=== PATIENT | male | born 1935 | race Caucasian/White ===

== ENCOUNTER 2017-07-06 21:23 | Emergency (ER) | payer MEDICARE, BC ==
--- NOTE | 2017-07-06 22:18 | RAD ---
RIGHT FOOT THREE VIEWS: 07/06/17 HISTORY: Fall. Right foot pain. FINDINGS/IMPRESSION: No acute fracture or dislocation is seen. Degenerative changes are present. Posterior and plantar kasi caneal spurs are present. POS: MANOLO
== END 2017-07-06 23:50 | disposition home or self-care (01) ==
LOC: ERS 21:23
DX: S90.111A Contusion of right great toe without damage to nail, initial encounter (principal); S90.821A Blister (nonthermal), right foot, initial encounter; I48.91 Unspecified atrial fibrillation; E11.9 Type 2 diabetes mellitus without complications; I48.92 Unspecified atrial flutter; E03.9 Hypothyroidism, unspecified; I10 Essential (primary) hypertension; Z87.891 Personal history of nicotine dependence; Z79.01 Long term (current) use of anticoagulants; W01.0XXA Fall on same level from slipping, tripping and stumbling without subsequent striking against object, initial encounter; Y93.01 Activity, walking, marching and hiking

== ENCOUNTER 2018-09-01 09:52 | Outpatient (CLI) | payer MEDICARE, BC ==
--- NOTE | 2018-09-01 11:08 | RAD ---
LEFT FOOT 3 VIEWS: HISTORY: Pain in foot and ankle with swelling. FINDINGS: There are prominent calcaneal spurs present. Some arthritic changes of the tarsal bone region and 1s t metatarsophalangeal joint and interphalangeal joints. There is minimal vascular calcification seen . There are no signs of any acute bony findings. IMPRESSION: Arthritic changes of the foot and some mild bony demineralization. POS: TPC
--- NOTE | 2018-09-01 11:10 | RAD ---
LEFT ANKLE 3 VIEWS: HISTORY: Pain and edema in the left ankle and foot without injury. FINDINGS: There is some soft tissue fullness of the lower leg, ankle, and foot. Arthrosis and degenerative timo nges are noted including the ankle joint with calcaneal plantar and Achilles enthesophytes. IMPRESSION: Degenerative and osteoarthrosis changes without acute fracture or dislocation. Small focus of decrea sed bone density in the medial talar dome, possibly a medial talar dome osteochondral subchondral cys tic focus. POS: C
== END 2018-09-01 09:53 | disposition home or self-care (01) ==
LOC: BICRAD 09:52
PROVIDERS: ATTEND Podiatrist
DX: M25.572 Pain in left ankle and joints of left foot (principal); M79.672 Pain in left foot; R60.0 Localized edema; M19.072 Primary osteoarthritis, left ankle and foot

== ENCOUNTER 2019-01-26 01:46 | Observation (INO) | payer MEDICARE, BC ==
[2019-01-26] MEDS ORDERED: Oxymetazoline HCl 0.05% (30 ML BOT) ONE (01:56)
[2019-01-26] MEDS ORDERED: Tranexamic Acid 1,000 MG/10 ML VIAL ONE (01:56)
[2019-01-26 02:25] LABS: #Basophils 0.1 thou/uL (0.0-0.2); #Eosinphils 0.2 thou/uL (0.0-0.7); #Lymphocytes 1.7 thou/uL (1.20-3.40); #Monocytes 0.8 thou/uL (0.11-0.59); #Neutrophils 5.1 thou/uL (1.40-6.50); %Basophils 0.8 % (0.0-1.0); %Eosinophils 3.1 % (0.0-10.0); %Lymphocytes 21.3 % (21.0-51.0); %Monocytes 10.1 % (0.0-10.0); %Neutrophils 64.7 % (42.0-75.0); Hemoglobin 12.4 g/dL (14.0-18.0); Mean Corpuscular HGB CONC 33.6 g/dL (32.0-36.0); Mean Corpuscular Hemoglobin 31.8 pg (27.0-31.0); Mean Corpuscular Volume 94.7 fL (78.0-98.0); Mean Platelet Volume 6.2 fL (7.4-10.4); Platelet Count 237 thou/uL (130-400); RBC Distribution Width 12.7 % (11.5-14.5); White Blood Cell (WBC) Count 7.9 thou/uL (4.8-10.8)
[2019-01-26 02:31] LABS: INR-International Normal Ratio 1.5; Prothrombin Time 18.2 SEC (12.0-14.7)
[2019-01-26 02:32] LABS: PTT 52.1 SEC (22.9-36.1)
[2019-01-26 02:45] LABS: ALT (SGPT) 16 U/L (8-55); AST (SGOT) 20 U/L (5-34); Albumin 4.3 g/dL (3.4-4.8); Alkaline Phosphatase 70 U/L (40-110); Anion Gap 13 mmol/L (10-20); BUN (Urea Nitrogen) 12 mg/dL (8.4-25.7); Bilirubin, Total 0.6 mg/dL (0.2-1.2); Calc. Creatinine Clearance 0 mL/min (70-130); Calcium 9.7 mg/dL (7.8-10.44); Carbon Dioxide 26 mmol/L (23-31); Chloride 93 mmol/L (98-107); Estimated GFR-MDRD 72; Glucose 118 mg/dL (83-110); Potassium 4.4 mmol/L (3.5-5.1); Protein, Total 7.3 g/dL (5.8-8.1); Sodium 128 mmol/L (136-145)
[2019-01-26] MEDS ORDERED: Nitroglycerin 2% Ointment 1 INCH/1 GM Packet ONE (03:21)
--- NOTE | 2019-01-26 03:49 | PDOC.HHP ---
Hospitalist HPI - History of Present Illness Epistaxis History of Present Illness: Patient is an 83 year old male with PMH atrial fibrillation on eliquis, chronic hyponatremia who presents to the ED for epistaxis. Tonight, patient developed significant nose bleed while brushing teeth, lasted for 40 minutes despite pressure and had a post-nasal drip. Patient has had several episodes of epistaxis in past, sees Dr Solis (ENT) for this, who has performed laryngoscopy in the past, presented for this in the past about 2 weeks ago, saw Dr Miguel Damico at that time who cauterized nares, given nasal saline. PMH significant for CHANTELL, DM, hyponatremia, Afib, hypothyroidism, HTN. In ED, bleeding controlled with afrin and txa, patient to be admitted for observation and ENT consultation. 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 Hospitalist ROS - Review of Systems Constitutional: denies: fever, chills Eyes: denies: vision change, conjunctivae inflammation ENT: reports: other (epistaxis). denies: ear pain, throat pain Respiratory: denies: cough, shortness of breath Cardiovascular: denies: chest pain, palpitations Gastrointestinal: denies: nausea, vomiting, diarrhea Genitourinary: denies: dysuria, frequency Musculoskeletal: denies: neck pain, shoulder pain Skin: denies: rash, lesions Neurological: denies: weakness, numbness All other systems reviewed; all pertinent +/- noted in HPI/Subj - Medication Medications: reviewed, see MAR/med rec for details Hospitalist History - Past Medical History Other Medical History: Past medical history includes cardiac history, arrhythmia, Atrial flutter (September 2011), Past medical history includes history of diabetes, Type II, Past medical history includes endocrine disease, hypothyroidism, Past medical history includes history of hypertension, which has been treated, Patient is compliant. - Past Surgical History Other Surgical History: Rt endartectomy (02/07/2015), Left endartectomy (05/2007) Colonoscopy Aflutter Ablation Cataract RT eye Cervical laminectomy C2, C3 Nasal sinus surgery Left knee scope Angioplasty x2, Surgical history of coronary artery bypass graft surgery, three vessels, Surgical history of cholecystectomy. - Family History Family History: reports: no pertinent history - Social History Other Social History: Patient is a former tobacco user, smoked cigarettes, Patient quit smoking more than 10 years ago, Patient denies alcohol use, Patient denies drug use,. - Exam General Appearance: NAD, awake alert Eye: PERRL, anicteric sclera ENT: normocephalic atraumatic, no oropharyngeal lesions, moist mucosa Neck: supple, symmetric, no JVD, no thyromegaly, no lymphadenopathy, no carotid bruit Heart: RRR, no murmur, no gallops, no rubs, normal peripheral pulses Respiratory: CTAB, no wheezes, no rales, no ronchi, normal chest expansion, no tachypnea, normal percussion Gastrointestinal: soft, non-tender, non-distended, normal bowel sounds, no palpable masses, no hepatomegaly, no splenomegaly, no bruit Extremities: no cyanosis, no clubbing, no edema Skin: normal turgor, no lesions, no rashes Neurological: cranial nerve grossly intact, normal sensation to touch, no weakness, no focal deficits, no new deficit Musculoskeletal: normal tone, normal strength, no muscle wasting Psychiatric: normal affect, normal behavior, A&O x 3 Hospitalist Results - Labs Result Diagrams: 01/26/19 02:18 01/26/19 02:18 Lab results: WBC 7.9 thou/uL (4.8-10.8) 01/26/19 02:18 Hgb 12.4 g/dL (14.0-18.0) L 01/26/19 02:18 Hct 37.0 % (42.0-52.0) L 01/26/19 02:18 MCV 94.7 fL (78.0-98.0) 01/26/19 02:18 Plt Count 237 thou/uL (130-400) 01/26/19 02:18 Neutrophils % 64.7 % (42.0-75.0) 01/26/19 02:18 Sodium 128 mmol/L (136-145) L 01/26/19 02:18 Potassium 4.4 mmol/L (3.5-5.1) 01/26/19 02:18 Chloride 93 mmol/L (98-107) L 01/26/19 02:18 Carbon Dioxide 26 mmol/L (23-31) 01/26/19 02:18 BUN 12 mg/dL (8.4-25.7) 01/26/19 02:18 Creatinine 0.99 mg/dL (0.7-1.3) 01/26/19 02:18 Glucose 118 mg/dL (83-110) H 01/26/19 02:18 Calcium 9.7 mg/dL (7.8-10.44) 01/26/19 02:18 Total Bilirubin 0.6 mg/dL (0.2-1.2) 01/26/19 02:18 AST 20 U/L (5-34) 01/26/19 02:18 ALT 16 U/L (8-55) 01/26/19 02:18 Alkaline Phosphatase 70 U/L (40-110) 01/26/19 02:18 Serum Total Protein 7.3 g/dL (5.8-8.1) 01/26/19 02:18 Albumin 4.3 g/dL (3.4-4.8) 01/26/19 02:18 Additional comment: BP: 157/107, Pulse: 114, Resp: 18 (Non-Labored), Pain: 0, O2 sat: 96 on Room Air , Time: 01/26/2019 01:47. Hospitalist H&P A/P - Problem (1) Epistaxis Code(s): R04.0 - EPISTAXIS Status: Acute Assessment and Plan: admit to floor, ent consultation placed, bleeding currently controlled, continue eliquis, follow up repeat hemoglobin. no symptoms of acute anemia clinically (2) Hyponatremia Code(s): E87.1 - HYPO-OSMOLALITY AND HYPONATREMIA Status: Acute Assessment and Plan: consulation placed for Dr Wilson, resume home meds once med rec complete.
[2019-01-26] MEDS ORDERED: Ondansetron PF 4 MG/2 ML Vial IVP PRN (03:59)
[2019-01-26] MEDS ORDERED: Bisacodyl 10 MG SUPP PR PRN (03:59)
[2019-01-26] MEDS ORDERED: HYDROcodone/Acetaminophen 5/325 mg Tablet PO PRN (03:59)
[2019-01-26] MEDS ORDERED: Acetaminophen 325 MG TAB PO PRN (03:59)
[2019-01-26] MEDS ORDERED: Bisacodyl 5 MG TAB PO PRN (03:59)
[2019-01-26] MEDS ORDERED: Senokot S 8.6-50 MG TAB PO PRN (03:59)
[2019-01-26 05:34] VITALS: BMI 30.9
[2019-01-26] MEDS: Famotidine 20 MG TAB PO SCH ×2 (08:11→19:56)
[2019-01-26] MEDS ORDERED: Oxymetazoline HCl 0.05% ( 15 ML ) NASAL SCH (13:15)
[2019-01-26 14:22] LABS: Anion Gap 12 mmol/L (10-20); BUN (Urea Nitrogen) 12 mg/dL (8.4-25.7); Calc. Creatinine Clearance 96 mL/min (70-130); Calcium 9.7 mg/dL (7.8-10.44); Carbon Dioxide 29 mmol/L (23-31); Chloride 91 mmol/L (98-107); Estimated GFR-MDRD 90; Glucose 155 mg/dL (83-110); Magnesium 1.8 mg/dL (1.6-2.6); Potassium 4.3 mmol/L (3.5-5.1); Sodium 128 mmol/L (136-145); Uric Acid 3.5 mg/dL (3.5-7.2)
[2019-01-26] MEDS ORDERED: Oxymetazoline HCl 0.05% (30 ML BOT) NS SCH ×2 (15:00→21:00)
[2019-01-26] MEDS ORDERED: diphenhydrAMINE 25 MG CAP PO PRN (15:40)
[2019-01-26] MEDS ORDERED: Carvedilol 6.25 MG TAB PO SCH ×2 (15:45→21:00)
[2019-01-26] MEDS ORDERED: Amlodipine 5 MG TAB PO SCH (15:45)
[2019-01-26] MEDS ORDERED: Polyethylene Glycol 3350 17 GM Packet PO PRN (15:48)
[2019-01-26] MEDS ORDERED: Labetalol HCl 100 MG/20 ML VIAL SLOW IVP PRN (16:49)
[2019-01-26] MEDS ORDERED: Losartan 25 MG TAB PO SCH (17:00)
--- NOTE | 2019-01-26 19:23 | PRG ---
DATE OF SERVICE: 01/26/2019 SUBJECTIVE: Mr. Welch is admitted with a severe nose bleed. He is on full dose Eliquis. He has had several recent nosebleeds, severe. He is also noted to be hypertensive. His blood pressure was 179/84 this afternoon. He has also low sodium, which is a chronic problem. OBJECTIVE: VITAL SIGNS: On examination now, blood pressure 179/84, pulse is 84. LUNGS: Clear. CARDIAC: Irregularly irregular. ABDOMEN: Soft, nontender. ASSESSMENT: 1. Chronic atrial fibrillation. 2. Congestive heart failure, systolic and diastolic mixed, ejection fraction 45% to 50%. 3. Hypertension, difficult to control. 4. Recurrent nosebleeds. PLAN: 1. We will stop Eliquis until , then go to 2.5 mg twice a day. 2. We are going to see the director instructional material consideration for trying to get a Watchman placed in view of recurrent nosebleed. 3. As an outpatient, could consider changing him from Benicar to Entresto, may be more effective at controlling his blood pressure and fluid without dropping his sodium. 4. We will restrict fluid to 1500 mL per day. Job ID: [id number]
[2019-01-26 19:58] VITALS: BP 168/84; TEMP 97.2
--- NOTE | 2019-01-26 20:23 | PRG ---
DATE OF SERVICE: 01/26/2019 SUBJECTIVE: Mr. Welch was admitted to [facility] with a diagnosis of hyponatremia and epistaxis. He was admitted through the ER to the hospitalist service. ENT was asked to come in and evaluate the nosebleed. Nose was actively bleeding when we entered the emergency room; however, once he was stabilized, it has not bled since he has been up on the floor. Mr. Welch admitted two weeks ago, his nose was cauterized for bleeding, but had not bled up until recently. Overall, the patient is doing well and has had no active bleeding again since being up on the floor. OBJECTIVE: GENERAL: The patient is well developed, well nourished. He is in no acute distress. VITAL SIGNS: His vital signs are stable. Currently, there is no sign of active bleeding. HEENT: Upon inspection of the level of the nose, there is evidence of old blood in the left anterior septum, but nothing is actively bleeding at this time. There is no sign of blood posterior drainage. ASSESSMENT: 1. Hyponatremia. 2. Epistaxis. PLAN: The patient is stable at this time. Therefore, no treatment currently needed for treatment of the epistaxis. If bleeding begins, may use Afrin at bedside with direct pressure. Recommend ENT followup upon discharge. Job ID: [id number]
[2019-01-26] MEDS ORDERED: Tamsulosin HCl 0.4 MG CAP PO SCH (21:00)
[2019-01-27] MEDS ORDERED: Levothyroxine Sodium 125 MCG TAB PO SCH (06:00)
[2019-01-27] MEDS ORDERED: Losartan 25 MG TAB PO SCH ×2 (09:00)
[2019-01-27] MEDS ORDERED: Multivit, Therapeutic 1 TAB PO SCH (09:00)
[2019-01-27] MEDS ORDERED: Non-Formulary Item 1 EACH (Olmesartan Medoxomil [Benicar] 40 MG) PO SCH (09:00)
[2019-01-27] MEDS ORDERED: Gabapentin 300 MG CAP PO SCH (09:00)
[2019-01-27] MEDS ORDERED: Amlodipine 5 MG TAB PO SCH (09:00)
--- NOTE | 2019-01-27 09:23 | DIS ---
DATE OF ADMISSION: 01/26/2019 DATE OF DISCHARGE: 01/26/2019 DISCHARGE DISPOSITION: Home. FOLLOWUP: 1. Follow up with primary care physician, Dr. Aleman in 1 week. 2. Follow up with primary ENT at [facility] as needed. ALLERGIES: PENICILLIN. CODE STATUS: Full code. DISCHARGE MEDICATIONS: Eliquis 2.5 mg twice daily to be started on January 30. All other home medications were left unchanged. The patient was seen and examined on the day of discharge. Denies any new complaints. 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 ENT Service. 2. Cardiology, Dr. Wilson. BRIEF HOSPITAL COURSE: The patient is an 83-year-old male with atrial fibrillation, on anticoagulation, presented to the hospital with epistaxis. Please refer to the history and physical by Dr. Sami Valles for further details. The patient was admitted to the hospital with a diagnosis of epistaxis. He was monitored on the telemetry unit as 23-hour observation. He had intermittent epistaxis while on the floor. The bleeding was controlled with nasal packing as well as Afrin sprays. He was evaluated by ENT as well as Cardiology. He will hold anticoagulation for 3 more days. He will resume anticoagulation at a lower dose. He was advised to follow up with ENT Service as outpatient. FINAL DIAGNOSES: 1. Epistaxis, resolved. 2. Hyponatremia. His sodium was 128 this admission. He will benefit from repeat labs after 1 week. Fluid restriction was emphasized. He declined. Nephrology consultation. 3. Chronic anemia. 4. Chronic atrial fibrillation. 5. Chronic systolic and diastolic heart failure. Recent ejection fraction of 45% to 50%. 6. Hypertension. 7. History of recurrent epistaxis. 8. Obesity with a BMI of 31. 9. Chronic kidney disease, stage 2. PLAN: Plan of care was discussed with the patient and the family in detail. They stated understanding. Significant labs; urine osmolality 273, urine sodium 88, serum osmolality 277. Magnesium was 1.8. TSH 0.6. Job ID: [id number]
--- NOTE | 2019-01-31 11:06 | EKG ---
Test Reason : Blood Pressure : / mmHG Vent. Rate : 096 BPM Atrial Rate : 068 BPM P-R Int : 000 ms QRS Dur : 112 ms QT Int : 364 ms P-R-T Axes : 000 -38 098 degrees QTc Int : 459 ms Atrial fibrillation with Premature ventricular complexes Left axis deviation Nonspecific ST and T wave abnormality Abnormal ECG Confirmed by GABRIELLA HOANG, BEATRIZ Isabel ([id number]), legal editor BERNY JESUS ([id number]) on 01/31/2019 11:05:51 AM Referred By: Confirmed By:BEATRIZ QUIROZ MD
== END 2019-01-26 20:36 | disposition home or self-care (01) ==
LOC: ERS 01:46 → 2SW 05:21
PROVIDERS: ADMIT Internal Medicine; ATTEND Internal Medicine
DX: R04.0 Epistaxis (principal); E87.1 Hypo-osmolality and hyponatremia; I48.2 Chronic atrial fibrillation; I13.0 Hypertensive heart and chronic kidney disease with heart failure and stage 1 through stage 4 chronic kidney disease, or unspecified chronic kidney disease; E11.22 Type 2 diabetes mellitus with diabetic chronic kidney disease; N18.2 Chronic kidney disease, stage 2 (mild); I50.42 Chronic combined systolic (congestive) and diastolic (congestive) heart failure; D63.1 Anemia in chronic kidney disease; G47.33 Obstructive sleep apnea (adult) (pediatric); E03.9 Hypothyroidism, unspecified; E66.9 Obesity, unspecified; Z68.31 Body mass index [BMI] 31.0-31.9, adult; Z87.891 Personal history of nicotine dependence; Z79.01 Long term (current) use of anticoagulants; Z79.82 Long term (current) use of aspirin; Z79.84 Long term (current) use of oral hypoglycemic drugs; Z79.899 Other long term (current) drug therapy; Z88.0 Allergy status to penicillin
CPT/HCPCS: 80048; 83735; 83930; 83935; 84300; 84550; 85610; 85730; 86850; 86900; 86901; 93005; 93306; 99284; G0378 ×2; 36415; 80053; 84443; 85025

== ENCOUNTER 2019-05-06 06:03 | Day surgery (SDC) | payer MEDICARE, BC ==
[2019-05-05 14:19] VITALS: BMI 35.9
[2019-05-06] MEDS ORDERED: Heparin (Artline) 0 ML ONE (06:37)
[2019-05-06] MEDS ORDERED: Heparin 10,000 UNITS/1 ML VIAL ONE (06:37)
[2019-05-06 06:51] LABS: #Eosinphils 0.2 thou/uL (0.0-0.7); #Lymphocytes 1.5 thou/uL (1.20-3.40); #Monocytes 0.6 thou/uL (0.11-0.59); %Basophils 0.2 % (0.0-1.0); %Eosinophils 2.6 % (0.0-10.0); %Monocytes 9.3 % (0.0-10.0); %Neutrophils 63.8 % (42.0-75.0); Hemoglobin 12.1 g/dL (14.0-18.0); Mean Corpuscular HGB CONC 34.5 g/dL (32.0-36.0); Mean Corpuscular Volume 95.5 fL (78.0-98.0); Mean Platelet Volume 6.6 fL (7.4-10.4); Platelet Count 212 thou/uL (130-400); RBC Distribution Width 13.1 % (11.5-14.5); Red Blood Cell (RBC) Count 3.66 mill/uL (4.70-6.10); White Blood Cell (WBC) Count 6.3 thou/uL (4.8-10.8)
[2019-05-06 06:59] LABS: INR-International Normal Ratio 1.3; Prothrombin Time 16.6 SEC (12.0-14.7)
[2019-05-06] MEDS ORDERED: PROPOFOL 20 ML ONE (07:03)
[2019-05-06 07:13] LABS: Anion Gap 12 mmol/L (10-20); BUN (Urea Nitrogen) 11 mg/dL (8.4-25.7); Calc. Creatinine Clearance 110 mL/min (70-130); Calcium 9.6 mg/dL (7.8-10.44); Carbon Dioxide 29 mmol/L (23-31); Chloride 94 mmol/L (98-107); Estimated GFR-MDRD Greater than 90; Glucose 114 mg/dL (83-110); Sodium 131 mmol/L (136-145)
--- NOTE | 2019-05-06 17:22 | ECHO ---
DATE OF SERVICE: 05/06/19 REFERRING PHYSICIAN: Dr. Rohit Wilson; Dr. Zander Bernal REASON FOR PROCEDURE: The patient is an 84-year-old man with history of chronic persistent atrial fibrillation with multipl e falls and underwent a Watchman device placed in March 24, 2019. He is here for a six week postop Watchman device ROGER. PROCEDURE: The patient received propofol by Anesthesia specialist. After adequate level of sedation achieved, a standard transesophageal echocardiogram probe was passed into the esophagus without diff iculty. Patient tolerated the procedure well, no complications noted. RESULTS: Left atrium is moderately enlarged about 5.3 cm in horizontal diameter. The left atrial appendage is well visualized with adequately seated Watchman device noted. Suboptimal opacification behind the Wa tchman device is seen and with Doppler interrogation, there is a small leak noted by the annular surf kiko of the Watchman device communicating behind the Watchman device into the left atrial appendage sp kiko. Also tiny flow through the front of the device is seen through the mesh work. Four out of four p ulmonary veins were seen without stenosis. Mild mitral regurgitation is noted. LV systolic function m oderately reduced. Estimated at about 45 to 50%. The right sided chambers are not dilated. Interatri al and interventricular septum is free of defect. The transseptal function is not visualized. Tricusp id valve has mild regurgitation only. The aortic valve has three leaflets with some sclerosis and isaiah flet fusion with moderate aortic valve stenosis up to 1.3 cm in the aortic valve area by planimetry. The pulmonary valve is not regurgitant or stenotic. The visualized portion of ascending and descendin g aorta with mild atheroma. No dissection or dilation. CONCLUSION: 1. Good quality transesophageal echocardiogram study.. 2. Adequately seated Watchman device but with slight leak visualized by the annular surface of the d evice with somewhat suboptimal opacification. 3. Mild mitral regurgitation and tricuspid regurgitation noted. 4. Mild reduced LV systolic function at 45 to 50%. LV dilation is seen. 5. Moderate aortic stenosis with planimetry aortic valve area about 1.3 sq cm with peak transaortic valve ------- by hand probe at 2.6 m/s. 6. No pericardial effusion. 7. Mild aortic atheroma. PLAN: Continue anticoagulation for now. We will send CD for review to Robert. Consider three month recheck of ROGER.
--- NOTE | 2019-05-08 15:19 | EKG ---
Test Reason : PREOP ROGER Blood Pressure : / mmHG Vent. Rate : 067 BPM Atrial Rate : 110 BPM P-R Int : 000 ms QRS Dur : 102 ms QT Int : 414 ms P-R-T Axes : 000 -03 017 degrees QTc Int : 437 ms Atrial fibrillation Possible Anterior infarct , age undetermined Abnormal ECG When compared with ECG of 26-JAN-2019 02:11, Premature ventricular complexes are no longer Present Nonspecific T wave abnormality no longer evident in Lateral leads Confirmed by DR. Jocelyn HAMMER ([id number]) on 05/08/2019 3:18:46 PM Referred By: [facility] Confirmed By:DR. Jocelyn HAMMER
== END 2019-05-06 09:33 | disposition home or self-care (01) ==
LOC: CCL 06:03
PROVIDERS: ATTEND Internal Medicine Cardiovascular Disease
PROC: B24BZZ4 Ultrasonography of Heart with Aorta, Transesophageal (ICD-10-PCS; principal; 2019-05-06)
DX: I48.19 Other persistent atrial fibrillation (principal); I08.1 Rheumatic disorders of both mitral and tricuspid valves; I35.0 Nonrheumatic aortic (valve) stenosis; G89.29 Other chronic pain; M54.9 Dorsalgia, unspecified; N40.0 Benign prostatic hyperplasia without lower urinary tract symptoms; E03.9 Hypothyroidism, unspecified; E11.9 Type 2 diabetes mellitus without complications; I10 Essential (primary) hypertension; I25.10 Atherosclerotic heart disease of native coronary artery without angina pectoris; Z87.891 Personal history of nicotine dependence; Z79.01 Long term (current) use of anticoagulants; Z79.82 Long term (current) use of aspirin; Z79.84 Long term (current) use of oral hypoglycemic drugs; Z79.899 Other long term (current) drug therapy; Z88.0 Allergy status to penicillin; Z88.1 Allergy status to other antibiotic agents; Z95.1 Presence of aortocoronary bypass graft
CPT/HCPCS: 36415; 80048; 85025; 85610; 85730; 93005; 93010; 93312; J1644; J2704

== ENCOUNTER 2020-05-17 10:20 | Observation (INO) | payer MEDICARE, BC ==
--- NOTE | 2020-05-17 11:01 | RAD ---
Chest 2 views HISTORY: Chest pain. FINDINGS: Cardiac silhouette and pulmonary vasculature are unremarkable. Mediastinum is midline with postoperative changes and aortic calcification. Right hemidiaphragm elevation is similar to CT from 12/08/2019. No lobar consolidation, pneumothorax, or pleural fluid. Ossification of anterior longitudinal ligamen t of the thoracic spine on the lateral view is consistent with diffuse idiopathic skeletal hyperostosis. Prominent degenerative changes right shoulder. IMPRESSION : No acute abnormalities are demonstrated.
[2020-05-17] MEDS ORDERED: Nitroglycerin 2% Ointment 1 INCH/1 GM Packet ONE ×2 (11:12→18:04)
[2020-05-17] MEDS ORDERED: Aspirin Chewable 81 MG TAB ONE (11:12)
[2020-05-17 11:17] LABS: #Eosinphils 0.1 thou/uL (0.0-0.7); #Monocytes 0.4 thou/uL (0.11-0.59); #Neutrophils 3.2 thou/uL (1.40-6.50); %Basophils 0.3 % (0.0-1.0); %Eosinophils 2.3 % (0.0-10.0); %Lymphocytes 20.9 % (21.0-51.0); %Monocytes 9.2 % (0.0-10.0); %Neutrophils 67.4 % (42.0-75.0); Hemoglobin 12.3 g/dL (14.0-18.0); Mean Corpuscular HGB CONC 33.1 g/dL (32.0-36.0); Mean Corpuscular Hemoglobin 32.1 pg (27.0-31.0); Mean Platelet Volume 6.8 fL (7.4-10.4); Platelet Count 224 thou/uL (130-400); RBC Distribution Width 12.7 % (11.5-14.5); Red Blood Cell (RBC) Count 3.82 mill/uL (4.70-6.10); White Blood Cell (WBC) Count 4.7 thou/uL (4.8-10.8)
[2020-05-17 11:40] LABS: ALT (SGPT) 11 U/L (8-55); AST (SGOT) 16 U/L (5-34); Albumin 4.3 g/dL (3.4-4.8); Alkaline Phosphatase 72 U/L (40-110); Anion Gap 14 mmol/L (10-20); BUN (Urea Nitrogen) 13 mg/dL (8.4-25.7); Bilirubin, Total 0.8 mg/dL (0.2-1.2); Calc. Creatinine Clearance 0 mL/min (70-130); Calcium 9.4 mg/dL (7.8-10.44); Carbon Dioxide 31 mmol/L (23-31); Chloride 93 mmol/L (98-107); Globulin 2.7 g/dL (2.4-3.5); Glucose 126 mg/dL (83-110); Sodium 134 mmol/L (136-145)
--- NOTE | 2020-05-17 13:06 | CT ---
CT angiogram chest: 05/17/2020 COMPARISON: 12/08/2019 HISTORY: Chest pain, dyspnea worsened with deep breathing TECHNIQUE: Axial CT imaging at 2.5 mm intervals through the chest with IV contrast using CT angiogram protocol. Coronal and sagittal 3-D reformatted imaging obtained. FINDINGS: Midline sternotomy wires are noted. There is a small sliding-type hiatal hernia. Cholecystectomy clips are noted. There is atheroscleroti c calcification of the imaged abdominal aorta and its branches. There is a stable cyst emanating from the upper pole of the left kidney, incompletely imaged on this examination. No pleural, pericardial, or mediastinal fluid is seen. There is extensive coronary arterial calcification and stent material. There is a left atrial appenda ge occlusion device. Multifocal atherosclerotic calcification of the thoracic aorta noted. There is no axillary, hilar, or mediastinal lymphadenopathy evident. There is adequate opacification of the pulmonary arterial vasculature with no evidence for acute pulm onary arterial embolism. No pneumothorax is evident on either side. No discrete pulmonary parenchymal mass lesion/nodule is noted within the lung parenchyma on either si de. Evaluation of the lung bases is slightly limited secondary to motion artifact. No endobronchial lesion is evident on either side. There is severe degenerative change involving the right shoulder, incompletely imaged on this exam. N o worrisome lytic or blastic bone lesions. IMPRESSION: No evidence for acute pulmonary arterial embolism. Multiple additional findings as descri bed above.
--- NOTE | 2020-05-17 13:20 | PDOC.HHP ---
Hospitalist HPI - History of Present Illness Chest pain History of Present Illness: Mr. Welch is an 85-year-old male with a past medical history of hypertension, hyperlipidemia, atrial fibrillation status post watchman, type 2 diabetes mellitus, hypothyroidism, coronary artery disease status post CABG in 1998 who presents to the emergency room for chest pain. Patient reports that over the weekend when he was exercising on his treadmill he noticed squeezing chest pain that lasted approximately 15 to 20 minutes. He denies nausea indigestion. Pain does not radiate. Patient then does notice chest pain with increasing frequency even when he was just moving around his house. He denies any chest pain at rest however. His chest pain did improve with sublingual nitro. He does report that his pain is worse with inspiration And does feel different than his previous cardiac pain. He endorses mild shortness of breath during these episodes. He denies any abdominal pain, dizziness, visual changes, numbness weakness or paresthesias. In emergency room initial vital signs 144/72, 78, 18, 99.2, 96% on room air. EKG showed atrial fibrillation with controlled ventricular rate. Initial troponin 0 0.010. BNP 351.8. Chest x-ray with no acute findings. CTA PE protocol was negative for PE however did show a small sliding-type hiatal hernia and a left kidney cyst. H&H 12.3/37.0, WBC 4.7. BUN/CR 13/0.81. Sodium 134, potassium 4.0. Patient received 325 mg of aspirin in emergency room. Hospitalist ROS - Review of Systems Constitutional: denies: fever, chills, sweats, weakness, malaise, other Eyes: denies: pain, vision change, conjunctivae inflammation, eyelid inflammation, redness, other ENT: denies: ear pain, ear discharge, nose pain, nose discharge, nose congestion, mouth pain, mouth swelling, throat pain, throat swelling, other Respiratory: reports: SOB with excertion, pleuritic pain. denies: cough, dry, shortness of breath, hemoptysis, sputum, wheezing, other Cardiovascular: reports: chest pain. denies: palpitations, orthopnea, paroxysmal noc. dyspnea, edema, light headedness, other Gastrointestinal: denies: nausea, vomiting, abdominal pain, diarrhea, constipation, melena, hematochezia, other Genitourinary: denies: dysuria, frequency, incontinence, hematuria, retention, other Musculoskeletal: denies: neck pain, shoulder pain, arm pain, back pain, hand pain, leg pain, foot pain, other Skin: denies: rash, lesions, sony, bruising, other Neurological: denies: weakness, numbness, incoordination, change in speech, confusion, seizures, other - Medication Medications: New medications include Lipitor Levothyroxine Hydralazine Gabapentin Furosemide Aspirin Metformin Carvedilol Tamsulosin Entresto Catapres Allergies to penicillin and Cipro Hospitalist History - Past Medical History Other Medical History: Past medical history significant for Hypertension Hyperlipidemia A flutter status post watchman Type 2 diabetes mellitus Hypothyroidism Coronary artery disease status post CABG in 1998 Chronic hyponatremia - Past Surgical History Other Surgical History: CABG in 1998 Multiple cardiac caths Status post watchman procedure Cataract surgery Laminectomies Cholecystectomy Bilateral endarterectomies - Family History Other Family History: Reports family history of cardiac disease - Social History Smoking Status: Former smoker Alcohol: reports: None Drugs: reports: none (Quit over 10 years ago) Living Situation: With Family Activity level: independent ambulation - Exam General Appearance: NAD, awake alert Eye: PERRL, anicteric sclera ENT: normocephalic atraumatic, no oropharyngeal lesions, moist mucosa Neck: supple, symmetric, no JVD, no thyromegaly, no lymphadenopathy, no carotid bruit Heart: no gallops, no rubs, normal peripheral pulses Heart - other findings: Irregularly irregular, systolic murmur Respiratory: CTAB, no wheezes, no rales, no ronchi, normal chest expansion, no tachypnea, normal percussion Gastrointestinal: soft, non-tender, non-distended, normal bowel sounds, no palpable masses, no hepatomegaly, no splenomegaly, no bruit Extremities: no cyanosis, no clubbing Extremities - other findings: Trace pedal edema Skin: normal turgor, no lesions, no rashes Neurological: cranial nerve grossly intact, normal sensation to touch, no weakness, no focal deficits, no new deficit Musculoskeletal: normal tone, normal strength, no muscle wasting Psychiatric: normal affect, normal behavior, A&O x 3 Hospitalist Results - Labs Result Diagrams: 05/17/20 10:59 05/17/20 10:59 Lab results: WBC 4.7 thou/uL (4.8-10.8) L 05/17/20 10:59 Hgb 12.3 g/dL (14.0-18.0) L 05/17/20 10:59 Hct 37.0 % (42.0-52.0) L 05/17/20 10:59 MCV 97.0 fL (78.0-98.0) 05/17/20 10:59 Plt Count 224 thou/uL (130-400) 05/17/20 10:59 Neutrophils % 67.4 % (42.0-75.0) 05/17/20 10:59 Sodium 134 mmol/L (136-145) L 05/17/20 10:59 Potassium 4.0 mmol/L (3.5-5.1) 05/17/20 10:59 Chloride 93 mmol/L (98-107) L 05/17/20 10:59 Carbon Dioxide 31 mmol/L (23-31) 05/17/20 10:59 BUN 13 mg/dL (8.4-25.7) 05/17/20 10:59 Creatinine 0.81 mg/dL (0.7-1.3) 05/17/20 10:59 Glucose 126 mg/dL (83-110) H 05/17/20 10:59 Calcium 9.4 mg/dL (7.8-10.44) 05/17/20 10:59 Total Bilirubin 0.8 mg/dL (0.2-1.2) 05/17/20 10:59 AST 16 U/L (5-34) 05/17/20 10:59 ALT 11 U/L (8-55) 05/17/20 10:59 Alkaline Phosphatase 72 U/L (40-110) 05/17/20 10:59 Troponin I Less than 0.010 ng/mL (< 0.028) 05/17/20 10:59 B-Natriuretic Peptide 351.8 pg/mL (0-100) H 05/17/20 10:59 Serum Total Protein 7.0 g/dL (5.8-8.1) 05/17/20 10:59 Albumin 4.3 g/dL (3.4-4.8) 05/17/20 10:59 Hospitalist H&P A/P - Plan Plan: Chest pain 85-year-old male with significant cardiac history CABG in 1998 and multiple angioplasties presents with chest pain that is squeezing, worse with exertion relieved by rest. EKG shows atrial fibrillation with no ST changes. Initial troponin 0 0.010. BNP 351.8. Chest x-ray with no acute findings. CTA negative for PE, however did show small hiatal sliding-type hernia which could be contributing to patient's pain.. Patient reports his last stress test was a few years ago. He follows with Dr. Wilson. Will admit for chest pain rule out and if troponins remain low stress test in a.m. Plan Trend troponin Telemetry monitoring ASA, statin N.p.o. at midnight Stress test in a.m. if troponins remain low TSH, magnesium Atrial fibrillation History of persistent A. fib status post watchman procedure. Patient is not on anticoagulation but does take carvedilol. EKG shows A. fib with controlled ventricular rate. We will continue home carvedilol and place on telemetry monitoring. Plan Continue carvedilol Telemetry monitoring Hiatal hernia CTA showed small sliding-type hiatal hernia which may be contributing to patient's chest pain. Will trial PPI. Hypertension History of hypertension on home Entresto, Catapres, carvedilol, Lasix, hydralazine. We will continue home medications. Hyperlipidemia We will continue home statin Hypothyroidism We will continue home levothyroxine BPH Continue home Flomax DVT prophylaxisSCDs Full codeMDM is patient's Case discussed with attending physician, Dr. Bryson.
[2020-05-17] MEDS ORDERED: Iopamidol-370 76% 500 ML 1 ML ONE (14:00)
[2020-05-17 16:05] LABS: Troponin I 0.012 ng/mL (< 0.028)
[2020-05-17] MEDS ORDERED: hydrALAZINE 25 MG TAB ONE (18:04)
[2020-05-17] MEDS: Nitroglycerin 2% Ointment 1 INCH/1 GM Packet TOP SCH ×2 (18:11→21:08)
[2020-05-17] MEDS: hydrALAZINE 25 MG TAB PO SCH ×2 (18:11→21:08)
[2020-05-17 18:13] VITALS: BMI 34.4
[2020-05-17 18:58] LABS: Troponin I Less than 0.010 ng/mL (< 0.028)
[2020-05-17] MEDS ORDERED: Atorvastatin Calcium 20 MG TAB PO SCH (21:00)
[2020-05-17] MEDS ORDERED: Tamsulosin HCl 0.4 MG CAP PO SCH (21:00)
[2020-05-17] MEDS: Sacubitril 49 MG/Valsartan 51 MG TABLET PO SCH (21:07)
[2020-05-17] MEDS: Carvedilol 6.25 MG TAB PO SCH (21:07)
[2020-05-18 04:49] LABS: #Eosinphils 0.1 thou/uL (0.0-0.7); #Lymphocytes 1.4 thou/uL (1.20-3.40); #Monocytes 0.7 thou/uL (0.11-0.59); #Neutrophils 4.2 thou/uL (1.40-6.50); %Basophils 0.6 % (0.0-1.0); %Eosinophils 1.4 % (0.0-10.0); %Lymphocytes 21.4 % (21.0-51.0); %Monocytes 11.1 % (0.0-10.0); %Neutrophils 65.5 % (42.0-75.0); Hemoglobin 11.5 g/dL (14.0-18.0); Mean Corpuscular HGB CONC 32.9 g/dL (32.0-36.0); Mean Corpuscular Hemoglobin 31.5 pg (27.0-31.0); Mean Corpuscular Volume 95.9 fL (78.0-98.0); Mean Platelet Volume 7.2 fL (7.4-10.4); Platelet Count 228 thou/uL (130-400); RBC Distribution Width 12.7 % (11.5-14.5); Red Blood Cell (RBC) Count 3.66 mill/uL (4.70-6.10); White Blood Cell (WBC) Count 6.4 thou/uL (4.8-10.8)
[2020-05-18] MEDS: Nitroglycerin 2% Ointment 1 INCH/1 GM Packet TOP SCH ×2 (05:28→15:20)
[2020-05-18 05:35] LABS: Anion Gap 14 mmol/L (10-20); BUN (Urea Nitrogen) 11 mg/dL (8.4-25.7); Calc. Creatinine Clearance 115 mL/min (70-130); Calcium 9.2 mg/dL (7.8-10.44); Carbon Dioxide 29 mmol/L (23-31); Cardiac Risk 2.6 (Less than 4.5); Chloride 94 mmol/L (98-107); Cholesterol 100 mg/dl (< 200 Desired); Glucose 106 mg/dL (83-110); HDL Cholesterol 39 mg/dL (>60 Neg Risk); LDL Cholesterol, Calculated 46 mg/dL; Potassium 3.6 mmol/L (3.5-5.1); Sodium 133 mmol/L (136-145); Triglycerides 73 mg/dL (Less than 150)
[2020-05-18] MEDS ORDERED: Levothyroxine Sodium 125 MCG TAB PO SCH (06:00)
[2020-05-18] MEDS ORDERED: Aspirin Chewable 81 MG TAB PO SCH (09:00)
[2020-05-18] MEDS ORDERED: Furosemide 20 MG TAB PO SCH (09:00)
--- NOTE | 2020-05-18 10:03 | NM ---
EXAM: NM Cardiac Stress W EF WF PROVIDED CLINICAL HISTORY: Chest pain COMPARISON: None RADIOPHARMACEUTICAL: 33 millicuries technetium 99m labeled sestamibi IV stress 29.6 millicuries technetium 99m labeled sestamibi IV rest FINDINGS: There is normal, homogeneous distribution of radiotracer throughout the left ventricular myocardium. Gated data demonstrate septal hypokinesis with otherwise normal myocardial wall motion and thickening with calculated LVEF 54%. Calculated TID is 1.06. IMPRESSION: 1. No scintigraphic evidence for ischemia. 2. Calculated LVEF 54%. Septal hypokinesis.
[2020-05-18] MEDS: Carvedilol 6.25 MG TAB PO SCH (10:34)
[2020-05-18] MEDS: hydrALAZINE 25 MG TAB PO SCH ×2 (10:34→15:22)
[2020-05-18] MEDS: Sacubitril 49 MG/Valsartan 51 MG TABLET PO SCH (10:34)
[2020-05-18 12:02] VITALS: TEMP 98.1
[2020-05-18] MEDS ORDERED: Acetaminophen 325 MG TAB PO PRN (12:17)
[2020-05-18] MEDS ORDERED: ADENOSINE 60 MG/20 ML VIAL ONE (12:18)
[2020-05-18 15:17] VITALS: BP 100/60
[2020-05-18 17:38] LABS: SARS-CoV-2 PCR by NAA Not Detected (NotDetected)
--- NOTE | 2020-05-18 20:12 | PDOC.DS.DS ---
Provider - Provider Date of Admission: 05/17/20 12:31 Date of Discharge: 05/18/20 Admitting Provider: Sondra Bryson MD Primary Care Physician: Julio Child MD Course - Hospital Course Hospital Course: Patient is a 85-year-old male with coronary artery disease, diabetes mellitus type 2, hypertension, hyperlipidemia and atrial fibrillation status post watchman device presented to the emergency room with chest discomfort. Please refer to the history and physical for further details. The patient was admitted to the hospital with a diagnosis of chest discomfort rule out acute coronary syndrome. Serial troponins remained negative. Telemetry monitoring did not show significant arrhythmias. CT angiogram of the chest was negative for pulmonary embolism. He underwent a stress test that was negative for reversible ischemia. Ejection fraction was 54% with septal hypokinesis. He is chest pain-free at this time. He was advised to follow-up with his primary director risk. Final diagnosis: Chest discomfortacute coronary syndrome ruled out Chronic atrial fibrillation not a candidate for anticoagulation. S/p watchman device Hiatal hernia Hypertension Hyperlipidemia Hypothyroidism Benign prostatic hypertrophy Hyponatremia Chronic anemia suspected due to nutritional deficiency - Labs Lab Results: 05/18/20 04:00 05/18/20 04:00 Abnormal Lab Results - Last 48 hrs 05/17/20 10:59: Sodium 134 L, Chloride 93 L 05/17/20 10:59: WBC 4.7 L, RBC 3.82 L, Hgb 12.3 L, Hct 37.0 L, MCH 32.1 H, MPV 6.8 L, Lymphocytes % 20.9 L, Lymphocytes # 1.0 L 05/17/20 10:59: B-Natriuretic Peptide 351.8 H 05/18/20 04:00: Sodium 133 L, Chloride 94 L 05/18/20 04:00: RBC 3.66 L, Hgb 11.5 L, Hct 35.1 L, MCH 31.5 H, MPV 7.2 L, Monocytes % 11.1 H, Monocytes # 0.7 H - Physical Exam Vitals: Vital Signs (12 hours) Temp Pulse Resp BP BP Pulse Ox 05/18/20 15:14 66 12 100/60 96 05/18/20 11:57 98.1 F 61 12 129/63 94 L 05/18/20 10:10 86 163/72 H 05/18/20 08:22 98.6 F 64 12 163/73 H 94 L Weight Weight 233 lb 11.04 oz Physical Exam: The patient was seen and examined on the day of discharge. Plan - Discharge Medications Prescriptions: Nitroglycerin [Nitrostat] 0.4 mg PO Q5MIN PRN #25 tab PRN Reason: Chest Pain Home Medications: Medication Instructions Recorded Confirmed Type Aspirin [Ecotrin Low Strength] 81 mg PO HS 08/27/13 05/17/20 History Atorvastatin Calcium [Lipitor] 1 tab PO QPM 08/27/13 05/17/20 History Levothyroxine Sodium [Synthroid] 125 mcg PO DAILY 08/27/13 05/17/20 History Multivitamin [Multi-Vitamin Daily] 1 tab PO DAILY 08/27/13 05/17/20 History metFORMIN HCl [metFORMIN HCl ER] 500 mg PO BID 02/04/15 05/17/20 History Tamsulosin HCl [Flomax] 0.4 mg PO QPM #0 cap 02/08/15 05/17/20 Rx Magnesium Oxide 400 mg PO DAILY 05/08/15 05/17/20 History Furosemide 20 mg PO SEEPHYS 01/26/19 05/17/20 History Gabapentin 300 mg PO DAILY 01/26/19 05/17/20 History Beta-Carotene(A)-C,E/Selenium 1 cap PO DAILY 05/05/19 05/17/20 History [Super Antioxidant Capsule] cloNIDine HCl 0.1 mg PO PRN PRN 05/05/19 05/17/20 History hydrALAZINE HCl [Hydralazine HCl] 50 mg PO TID 05/05/19 05/17/20 History Acetaminophen [Tylenol Arthritis] 650 mg PO DAILY 05/06/19 05/17/20 History Lutein 20 mg PO DAILY 05/06/19 05/17/20 History Carvedilol [Coreg] 6.25 mg PO BID 05/17/20 05/17/20 History Sacubitril/Valsartan [Entresto 97 2 tab PO DAILY 05/17/20 05/17/20 History mg-103 mg Tablet] Nitroglycerin [Nitrostat] 0.4 mg PO Q5MIN PRN #25 tab 05/18/20 Rx Allergies: ciprofloxacin [From Cipro] Allergy (Verified 05/05/19 14:19) ankle swelling Penicillins Allergy (Verified 05/05/19 14:19) Severe Hives per pt - Follow up Plan Referrals: Julio Child MD [Primary Care Provider] - 7 Days (Follow up with your primary care provider in about a week. Call and schedule an appointment that works best for you. ) Carissa Wilson MD [Active] - 14 Days (Please follow up with Dr. Wilson in 2 weeks; call and schedule an appointment that works best for you. ) Disposition: HOME Quality - Care Measures CORE MEASURES:: N/A
--- NOTE | 2020-06-04 16:41 | EKG ---
Test Reason : Blood Pressure : / mmHG Vent. Rate : 075 BPM Atrial Rate : 077 BPM P-R Int : 000 ms QRS Dur : 100 ms QT Int : 380 ms P-R-T Axes : 000 -04 035 degrees QTc Int : 424 ms Atrial fibrillation Incomplete right bundle branch block Abnormal ECG Confirmed by GABRIELLA HOANG, BEATRIZ Isabel ([id number]), editor managing newspaper EUGENE JEWELL ([id number]) on 06/04/2020 4:40:40 PM Referred By: Confirmed By:BEATRIZ QUIROZ MD
== END 2020-05-18 15:28 | disposition home or self-care (01) ==
LOC: ERS 10:20 → ERHOLD 12:31 → 2NO 20:12
PROVIDERS: ADMIT Internal Medicine; ATTEND Internal Medicine
DX: R07.9 Chest pain, unspecified (principal); I48.19 Other persistent atrial fibrillation; K44.9 Diaphragmatic hernia without obstruction or gangrene; I10 Essential (primary) hypertension; E78.5 Hyperlipidemia, unspecified; E11.9 Type 2 diabetes mellitus without complications; E03.9 Hypothyroidism, unspecified; I25.10 Atherosclerotic heart disease of native coronary artery without angina pectoris; N40.0 Benign prostatic hyperplasia without lower urinary tract symptoms; N28.1 Cyst of kidney, acquired; Z87.891 Personal history of nicotine dependence; Z79.82 Long term (current) use of aspirin; Z79.84 Long term (current) use of oral hypoglycemic drugs; Z79.899 Other long term (current) drug therapy; Z88.0 Allergy status to penicillin; Z88.1 Allergy status to other antibiotic agents; Z95.1 Presence of aortocoronary bypass graft; Z20.822 Contact with and (suspected) exposure to COVID-19
CPT/HCPCS: 71046; 71275; 78452; 80048; 80061; 83735; 83880; 84484 ×2; 85025; 93005; 93017; 94660; 94760 ×2; 99285; A9500; U0003; U0005; 36415; 80053; 84443; 87635; G0378; J0153; Q9967

== ENCOUNTER 2021-01-11 12:56 | Outpatient (CLI) | payer MEDICARE, BC, MEDICAID ==
[2021-01-11 14:39] LABS: Hemoglobin 10.9 g/dL (13.5-17.5); Mean Corpuscular HGB CONC 32.6 g/dL (32.0-36.0); Mean Corpuscular Hemoglobin 30.9 pg (27.0-33.0); Mean Corpuscular Volume 94.6 fl (81.2-95.1); Mean Platelet Volume 9.4 fl (7.4-10.4); Platelet Count 191 10x3/uL (150-450); RBC Distribution Width 14.5 % (11.5-14.5); Red Blood Cell (RBC) Count 3.53 10x6/uL (4.32-5.72); White Blood Cell (WBC) Count 4.5 10x3/uL (3.5-10.5)
[2021-01-11 14:40] LABS: Anion Gap 15 mmol/L (10-20); BUN (Urea Nitrogen) 15 mg/dL (8.4-25.7); Calc. Creatinine Clearance 0 mL/min (70-130); Carbon Dioxide 27 mmol/L (23-31); Chloride 96 mmol/L (98-107); Glucose 127 mg/dL (83-110); Potassium 4.7 mmol/L (3.5-5.1); Sodium 133 mmol/L (136-145)
[2021-01-12 11:58] LABS: SARS-CoV-2 PCR by NAA Not Detected (NotDetected)
== END 2021-01-11 12:57 | disposition home or self-care (01) ==
LOC: LABBT 12:56
PROVIDERS: ATTEND Neurological Surgery
DX: Z01.812 Encounter for preprocedural laboratory examination (principal); M48.061 Spinal stenosis, lumbar region without neurogenic claudication; Z20.822 Contact with and (suspected) exposure to COVID-19
CPT/HCPCS: 80048; 85027; U0003; U0005

== ENCOUNTER → 2021-01-13 | Day surgery (SDC) | payer MEDICARE, BC ==
[2021-01-12 10:45] VITALS: BMI 35.7
[~2021-01-13] MED LIST: Bupivacaine PF 0.5% 30 ML VIAL ONE; Clindamycin/D5W 900 mg/50 ml Premix Bag ONE; Dexamethasone 20 MG/5 ML VIAL ONE; EPINEPHrine 1 MG/ML AMP ONE; Fentanyl 100 MCG/2 ML VIAL ONE; Glycopyrrolate 0.2 MG/ML 5 ML SYRINGE ONE; Levofloxacin 500 mg/D5W 100 ml Premix Bag ONE; Lidocaine 1% PF 5 ML VIAL ONE; Lidocaine 1.5%/Epinephrine 1:200,000 5 ML AMPUL IJ ONE; Ondansetron PF 4 MG/2 ML Vial ONE; PHENYLEPHRINE-NS 100 MCG/ML 10 ML SYRINGE ONE; PROPOFOL 200 MG/20 ML VIAL ONE; Rocuronium Bromide 10 MG/ML (10ML VIAL) ONE; Tamsulosin HCl 0.4 MG CAP ONE; Thrombin 5000 UNITS/5 ML VIAL ONE; ePHEDrine 50 MG/ML VIAL ONE
== END ==
LOC: SDC 05:35
PROVIDERS: ATTEND Neurological Surgery
PROC: 01NB0ZZ Release Lumbar Nerve, Open Approach (ICD-10-PCS; principal; 2021-01-13)
DX: M48.062 Spinal stenosis, lumbar region with neurogenic claudication (principal); I25.10 Atherosclerotic heart disease of native coronary artery without angina pectoris; E11.9 Type 2 diabetes mellitus without complications; E03.9 Hypothyroidism, unspecified; G89.29 Other chronic pain; M54.9 Dorsalgia, unspecified; I10 Essential (primary) hypertension; M19.90 Unspecified osteoarthritis, unspecified site; Z87.891 Personal history of nicotine dependence; Z79.02 Long term (current) use of antithrombotics/antiplatelets; Z79.82 Long term (current) use of aspirin; Z79.84 Long term (current) use of oral hypoglycemic drugs; Z79.899 Other long term (current) drug therapy; Z88.0 Allergy status to penicillin; Z88.1 Allergy status to other antibiotic agents; Z91.040 Latex allergy status; Z95.1 Presence of aortocoronary bypass graft
CPT/HCPCS: 76000; 93005; 93010; J0171; J1956; J3010; J3490; S0020

== ENCOUNTER 2021-01-15 20:06 | Inpatient (IN) | payer MEDICARE, BC ==
[~2021-01-15 20:06] MED LIST changes: -Bupivacaine PF 0.5% 30 ML VIAL ONE; -Clindamycin/D5W 900 mg/50 ml Premix Bag ONE; -Dexamethasone 20 MG/5 ML VIAL ONE; -EPINEPHrine 1 MG/ML AMP ONE; -Fentanyl 100 MCG/2 ML VIAL ONE; -Glycopyrrolate 0.2 MG/ML 5 ML SYRINGE ONE; +Iopamidol-370 76% 500 ML 1 ML ONE; -Levofloxacin 500 mg/D5W 100 ml Premix Bag ONE; -Lidocaine 1% PF 5 ML VIAL ONE; -Lidocaine 1.5%/Epinephrine 1:200,000 5 ML AMPUL IJ ONE; -Ondansetron PF 4 MG/2 ML Vial ONE; -PHENYLEPHRINE-NS 100 MCG/ML 10 ML SYRINGE ONE; -PROPOFOL 200 MG/20 ML VIAL ONE; -Rocuronium Bromide 10 MG/ML (10ML VIAL) ONE; -Tamsulosin HCl 0.4 MG CAP ONE; -Thrombin 5000 UNITS/5 ML VIAL ONE; -ePHEDrine 50 MG/ML VIAL ONE
[2021-01-15 20:47] LABS: #Lymphocytes 0.7 thou/uL (1.20-3.40); #Neutrophils 7.4 thou/uL (1.40-6.50); %Basophils 0.2 % (0.0-1.0); %Eosinophils 0.2 % (0.0-10.0); %Lymphocytes 7.5 % (21.0-51.0); %Monocytes 10.8 % (0.0-10.0); %Neutrophils 81.3 % (42.0-75.0); Mean Corpuscular HGB CONC 34.8 g/dL (32.0-36.0); Mean Corpuscular Hemoglobin 32.7 pg (27.0-31.0); Mean Corpuscular Volume 93.9 fL (78.0-98.0); Mean Platelet Volume 6.9 fL (7.4-10.4); Platelet Count 193 thou/uL (130-400); RBC Distribution Width 12.7 % (11.5-14.5); Red Blood Cell (RBC) Count 2.75 mill/uL (4.70-6.10); White Blood Cell (WBC) Count 9.1 thou/uL (4.8-10.8)
[2021-01-15 21:05] LABS: Anion Gap 13 mmol/L (10-20); BUN (Urea Nitrogen) 24 mg/dL (8.4-25.7); Calc. Creatinine Clearance 0 mL/min (70-130); Calcium 8.9 mg/dL (7.8-10.44); Carbon Dioxide 26 mmol/L (23-31); Chloride 89 mmol/L (98-107); Glucose 129 mg/dL (83-110); Potassium 5.2 mmol/L (3.5-5.1); Sodium 123 mmol/L (136-145)
[2021-01-15] MEDS ORDERED: Cefepime 2 GM VIAL ONE ×2 (21:06→21:11)
[2021-01-15 21:45] LABS: ALT (SGPT) 14 U/L (8-55); AST (SGOT) 20 U/L (5-34); Albumin 3.9 g/dL (3.4-4.8); Alkaline Phosphatase 61 U/L (40-110); Anion Gap 16 mmol/L (10-20); BUN (Urea Nitrogen) 23 mg/dL (8.4-25.7); Bilirubin, Total 0.9 mg/dL (0.2-1.2); Calc. Creatinine Clearance 0 mL/min (70-130); Calcium 9.4 mg/dL (7.8-10.44); Carbon Dioxide 25 mmol/L (23-31); Chloride 89 mmol/L (98-107); Globulin 2.9 g/dL (2.4-3.5); Glucose 127 mg/dL (83-110); Magnesium 1.6 mg/dL (1.6-2.6); Potassium 5.1 mmol/L (3.5-5.1); Protein, Total 6.8 g/dL (5.8-8.1); Sodium 125 mmol/L (136-145)
[2021-01-15 21:48] LABS: INR-International Normal Ratio 1.1; Prothrombin Time 14.8 sec (12.0-14.7)
[2021-01-15 21:49] LABS: PTT 40.4 sec (22.9-36.1)
[2021-01-15 23:27] LABS: Bilirubin Negative (Negative); Blood, Urine Negative (Negative); Clarity Clear (Clear); Glucose, Urine (Dipstick) Normal (Negative); Ketone, Urine 10 mg/dL (Negative); Leukocyte Negative Leu/uL (Negative); Nitrite Negative (Negative); Protein, Urine (Dipstick) Negative (Neg-Trace); Specific Gravity, Urine 1.016 (1.002-1.036); Urobilinogen Normal mg/dL (Less than 2); pH, Urine 5.5 (5.0-9.0)
[2021-01-16] MEDS ORDERED: Vancomycin 1 GM/200 ML BAG ONE (00:03)
[2021-01-16] MEDS ORDERED: Acetaminophen 325 MG TAB PO PRN (02:39)
[2021-01-16] MEDS ORDERED: Ondansetron PF 4 MG/2 ML Vial IVP PRN (02:39)
[2021-01-16 02:56] LABS: SARS-CoV-2 NAA Rapid Test Not Detected (NotDetected)
[2021-01-16] MEDS ORDERED: Sodium Chloride 0.9% 1,000 ML IV SCH (03:45)
[2021-01-16] MEDS ORDERED: Dextrose 5% in Water 1,000 ML IV PRN (03:50)
[2021-01-16] MEDS ORDERED: Dextrose 50% Abboject 50 ML SYRINGE SLOW IVP PRN (03:50)
[2021-01-16] MEDS ORDERED: HumaLOG 300 UNITS/3 ML VIAL SC PRN (03:50)
[2021-01-16 04:29] LABS: #Lymphocytes 0.6 thou/uL (1.20-3.40); #Monocytes 0.9 thou/uL (0.11-0.59); #Neutrophils 8.2 thou/uL (1.40-6.50); %Basophils 0.5 % (0.0-1.0); %Eosinophils 0.1 % (0.0-10.0); %Lymphocytes 6.2 % (21.0-51.0); %Monocytes 9.4 % (0.0-10.0); %Neutrophils 83.8 % (42.0-75.0); Hemoglobin 8.7 g/dL (14.0-18.0); Mean Corpuscular HGB CONC 33.6 g/dL (32.0-36.0); Mean Corpuscular Hemoglobin 31.4 pg (27.0-31.0); Mean Corpuscular Volume 93.5 fL (78.0-98.0); Mean Platelet Volume 7.1 fL (7.4-10.4); Platelet Count 170 thou/uL (130-400); RBC Distribution Width 12.5 % (11.5-14.5); Red Blood Cell (RBC) Count 2.78 mill/uL (4.70-6.10); White Blood Cell (WBC) Count 9.8 thou/uL (4.8-10.8)
[2021-01-16 04:51] LABS: Anion Gap 12 mmol/L (10-20); BUN (Urea Nitrogen) 18 mg/dL (8.4-25.7); Calc. Creatinine Clearance 0 mL/min (70-130); Carbon Dioxide 28 mmol/L (23-31); Chloride 91 mmol/L (98-107); Glucose 136 mg/dL (83-110); Potassium 4.7 mmol/L (3.5-5.1); Sodium 126 mmol/L (136-145)
[2021-01-16] MEDS ORDERED: HYDROcodone/Acetaminophen 5/325 mg Tablet ONE (06:32)
[2021-01-16] MEDS: HYDROcodone/Acetaminophen 5/325 mg Tablet PO PRN ×3 (06:32→20:57)
[2021-01-16] MEDS ORDERED: Dexamethasone 10 MG in Sodium Chloride 0.9% 50 ML IVPB SCH (10:00)
[2021-01-16] MEDS ORDERED: Dexamethasone 10 MG/ML VIAL ONE (10:06)
[2021-01-16] MEDS ORDERED: Cefepime 2 GM VIAL ONE (10:14)
[2021-01-16] MEDS ORDERED: Dexamethasone 10 MG/ML VIAL SLOW IVP SCH (10:15)
[2021-01-16] MEDS: Cefepime 2 GM in Sodium Chloride 0.9% 100 ML IVPB SCH ×2 (10:21→21:07)
[2021-01-16 10:41] LABS: Sodium 126 mmol/L (136-145)
[2021-01-16] MEDS: VANCOMYCIN 1.75 GM/350 ML BAG 1.75 GM in Premix Bag 1 BAG IVPB SCH (12:30)
[2021-01-16] MEDS: methylPREDNISolone 4 mg Tablet PO SCH ×2 (12:30→19:17)
[2021-01-16 15:59] VITALS: BMI 35.2
[2021-01-16 16:06] LABS: Sodium 128 mmol/L (136-145)
[2021-01-16] MEDS ORDERED: cloNIDine 0.1 MG TAB PO PRN (17:40)
[2021-01-16] MEDS: Furosemide 20 MG TAB PO SCH (19:29)
[2021-01-16 20:46] LABS: Anion Gap 11 mmol/L (10-20); BUN (Urea Nitrogen) 15 mg/dL (8.4-25.7); Calc. Creatinine Clearance 109 mL/min (70-130); Carbon Dioxide 26 mmol/L (23-31); Chloride 93 mmol/L (98-107); Glucose 184 mg/dL (83-110); Potassium 4.5 mmol/L (3.5-5.1); Sodium 125 mmol/L (136-145)
[2021-01-16] MEDS: Tamsulosin HCl 0.4 MG CAP PO SCH (20:59)
[2021-01-16] MEDS: Gabapentin 300 MG CAP PO SCH (20:59)
[2021-01-16] MEDS: Aspirin 81 mg Enteric Coated Tablet PO SCH (21:00)
[2021-01-16] MEDS: Carvedilol 6.25 MG TAB PO SCH (21:00)
[2021-01-16] MEDS: hydrALAZINE 25 MG TAB PO SCH (21:00)
[2021-01-16] MEDS: Sacubitril 49 MG/Valsartan 51 MG TABLET PO SCH (21:01)
[2021-01-16] MEDS: Atorvastatin Calcium 20 MG TAB PO SCH (21:01)
[2021-01-17] MEDS: methylPREDNISolone 4 mg Tablet PO SCH ×4 (00:51→17:15)
[2021-01-17] MEDS: HYDROcodone/Acetaminophen 5/325 mg Tablet PO PRN (00:51)
[2021-01-17 02:46] LABS: #Lymphocytes 0.6 thou/uL (1.20-3.40); #Monocytes 0.7 thou/uL (0.11-0.59); #Neutrophils 6.6 thou/uL (1.40-6.50); %Basophils 0.2 % (0.0-1.0); %Eosinophils 0.3 % (0.0-10.0); %Monocytes 8.5 % (0.0-10.0); Hemoglobin 9.4 g/dL (14.0-18.0); Mean Corpuscular HGB CONC 34.4 g/dL (32.0-36.0); Mean Corpuscular Hemoglobin 32.4 pg (27.0-31.0); Mean Corpuscular Volume 94.2 fL (78.0-98.0); Mean Platelet Volume 6.9 fL (7.4-10.4); Platelet Count 181 thou/uL (130-400); RBC Distribution Width 12.8 % (11.5-14.5); Red Blood Cell (RBC) Count 2.89 mill/uL (4.70-6.10)
[2021-01-17 03:01] LABS: Hemoglobin A1c 5.4 % (4.0-6.0)
[2021-01-17 03:06] LABS: Anion Gap 13 mmol/L (10-20); BUN (Urea Nitrogen) 16 mg/dL (8.4-25.7); Calc. Creatinine Clearance 108 mL/min (70-130); Calcium 9.4 mg/dL (7.8-10.44); Carbon Dioxide 26 mmol/L (23-31); Cardiac Risk 2.2 (Less than 4.5); Chloride 94 mmol/L (98-107); Cholesterol 105 mg/dl (< 200 Desired); Glucose 164 mg/dL (83-110); HDL Cholesterol 47 mg/dL (>60 Neg Risk); LDL Cholesterol, Calculated 47 mg/dL; Potassium 4.6 mmol/L (3.5-5.1); Sodium 128 mmol/L (136-145); Triglycerides 57 mg/dL (Less than 150)
[2021-01-17] MEDS: Levothyroxine Sodium 125 MCG TAB PO SCH (04:48)
[2021-01-17 08:42] LABS: Sodium 129 mmol/L (136-145)
[2021-01-17] MEDS ORDERED: SELENIUM PO SCH (09:00)
[2021-01-17] MEDS ORDERED: [UNRECOGNIZED DRUG - REMARK] PO SCH (09:00)
[2021-01-17] MEDS ORDERED: [UNRECOGNIZED DRUG - OTHER] PO SCH (09:00)
[2021-01-17] MEDS: Multivit, Therapeutic 1 TAB PO SCH (09:38)
[2021-01-17] MEDS: Carvedilol 6.25 MG TAB PO SCH ×2 (09:39→21:33)
[2021-01-17] MEDS: hydrALAZINE 25 MG TAB PO SCH ×3 (09:39→21:32)
[2021-01-17] MEDS: Docusate 100 MG CAP PO SCH ×2 (09:39→21:32)
[2021-01-17] MEDS: Sacubitril 49 MG/Valsartan 51 MG TABLET PO SCH ×2 (09:40→21:32)
[2021-01-17] MEDS: Cefepime 2 GM in Sodium Chloride 0.9% 100 ML IVPB SCH ×2 (09:40→21:53)
[2021-01-17] MEDS: Clopidogrel Bisulfate 75 MG TAB PO SCH (09:40)
[2021-01-17] MEDS: Magnesium Oxide 400 MG TAB PO SCH (09:40)
[2021-01-17 12:08] LABS: Vancomycin, Trough 9.4 ug/mL
[2021-01-17] MEDS: Vancomycin 1 GM in Premix Bag 1 BAG IVPB SCH (12:43)
[2021-01-17] MEDS: VANCOMYCIN 1.75 GM/350 ML BAG 1.75 GM in Premix Bag 1 BAG IVPB SCH (12:54)
[2021-01-17 15:19] LABS: Sodium 129 mmol/L (136-145)
[2021-01-17] MEDS: Aspirin 81 mg Enteric Coated Tablet PO SCH (21:32)
[2021-01-17] MEDS: Gabapentin 300 MG CAP PO SCH (21:32)
[2021-01-17] MEDS: Tamsulosin HCl 0.4 MG CAP PO SCH (21:33)
[2021-01-17] MEDS: Atorvastatin Calcium 20 MG TAB PO SCH (21:33)
[2021-01-18] MEDS: Vancomycin 1 GM in Premix Bag 1 BAG IVPB SCH (01:10)
[2021-01-18] MEDS: methylPREDNISolone 4 mg Tablet PO SCH ×4 (01:11→17:55)
[2021-01-18] MEDS: Levothyroxine Sodium 125 MCG TAB PO SCH (05:38)
[2021-01-18 05:46] LABS: #Lymphocytes 0.7 thou/uL (1.20-3.40); #Neutrophils 7.6 thou/uL (1.40-6.50); %Eosinophils 0.2 % (0.0-10.0); %Lymphocytes 7.5 % (21.0-51.0); %Monocytes 10.8 % (0.0-10.0); %Neutrophils 81.5 % (42.0-75.0); Hemoglobin 8.1 g/dL (14.0-18.0); Mean Corpuscular HGB CONC 33.3 g/dL (32.0-36.0); Mean Corpuscular Hemoglobin 31.8 pg (27.0-31.0); Mean Corpuscular Volume 95.5 fL (78.0-98.0); Mean Platelet Volume 7.2 fL (7.4-10.4); Platelet Count 209 thou/uL (130-400); RBC Distribution Width 12.6 % (11.5-14.5); Red Blood Cell (RBC) Count 2.55 mill/uL (4.70-6.10); White Blood Cell (WBC) Count 9.3 thou/uL (4.8-10.8)
[2021-01-18 06:17] LABS: Anion Gap 15 mmol/L (10-20); BUN (Urea Nitrogen) 21 mg/dL (8.4-25.7); Calc. Creatinine Clearance 113 mL/min (70-130); Calcium 8.7 mg/dL (7.8-10.44); Carbon Dioxide 26 mmol/L (23-31); Chloride 94 mmol/L (98-107); Glucose 134 mg/dL (83-110); Potassium 4.7 mmol/L (3.5-5.1); Sodium 130 mmol/L (136-145)
[2021-01-18 07:45] LABS: Iron 32 ug/dL (65-175); Iron Binding Capacity, Total 245 mcg/dL (261-462)
[2021-01-18] MEDS: Carvedilol 6.25 MG TAB PO SCH ×2 (08:47→20:42)
[2021-01-18] MEDS: Ferrous Sulfate 325 MG TAB PO SCH (08:47)
[2021-01-18] MEDS: Clopidogrel Bisulfate 75 MG TAB PO SCH (08:49)
[2021-01-18] MEDS: hydrALAZINE 25 MG TAB PO SCH ×3 (08:50→20:42)
[2021-01-18] MEDS: Magnesium Oxide 400 MG TAB PO SCH (08:51)
[2021-01-18] MEDS: Docusate 100 MG CAP PO SCH ×2 (08:51→20:42)
[2021-01-18] MEDS: Multivit, Therapeutic 1 TAB PO SCH (08:51)
[2021-01-18] MEDS: Sacubitril 49 MG/Valsartan 51 MG TABLET PO SCH ×2 (08:52→20:42)
[2021-01-18 09:57] LABS: #Neutrophils 7.9 thou/uL (1.40-6.50); %Eosinophils 0.1 % (0.0-10.0); %Lymphocytes 9.9 % (21.0-51.0); %Monocytes 10.5 % (0.0-10.0); %Neutrophils 79.6 % (42.0-75.0); Hemoglobin 8.8 g/dL (14.0-18.0); Mean Corpuscular HGB CONC 33.8 g/dL (32.0-36.0); Mean Corpuscular Hemoglobin 32.3 pg (27.0-31.0); Mean Corpuscular Volume 95.5 fL (78.0-98.0); Mean Platelet Volume 7.1 fL (7.4-10.4); Platelet Count 217 thou/uL (130-400); RBC Distribution Width 12.8 % (11.5-14.5); Red Blood Cell (RBC) Count 2.71 mill/uL (4.70-6.10); White Blood Cell (WBC) Count 9.9 thou/uL (4.8-10.8)
[2021-01-18 10:20] LABS: Anion Gap 12 mmol/L (10-20); BUN (Urea Nitrogen) 22 mg/dL (8.4-25.7); Calc. Creatinine Clearance 112 mL/min (70-130); Calcium 9.1 mg/dL (7.8-10.44); Carbon Dioxide 29 mmol/L (23-31); Chloride 93 mmol/L (98-107); Glucose 128 mg/dL (83-110); Potassium 4.5 mmol/L (3.5-5.1); Sodium 129 mmol/L (136-145)
[2021-01-18] MEDS: Furosemide 20 MG TAB PO SCH (17:56)
[2021-01-18] MEDS: Tamsulosin HCl 0.4 MG CAP PO SCH (20:41)
[2021-01-18] MEDS: Gabapentin 300 MG CAP PO SCH (20:41)
[2021-01-18] MEDS: Atorvastatin Calcium 20 MG TAB PO SCH (20:41)
[2021-01-18] MEDS: Aspirin 81 mg Enteric Coated Tablet PO SCH (20:42)
[2021-01-19] MEDS: methylPREDNISolone 4 mg Tablet PO SCH ×4 (01:34→20:05)
[2021-01-19 04:49] LABS: #Basophils 0.1 thou/uL (0.0-0.2); #Monocytes 1.1 thou/uL (0.11-0.59); #Neutrophils 7.7 thou/uL (1.40-6.50); %Basophils 1.3 % (0.0-1.0); %Eosinophils 0.2 % (0.0-10.0); %Lymphocytes 10.3 % (21.0-51.0); %Monocytes 10.9 % (0.0-10.0); %Neutrophils 77.2 % (42.0-75.0); Hemoglobin 8.9 g/dL (14.0-18.0); Mean Corpuscular HGB CONC 31.9 g/dL (32.0-36.0); Mean Corpuscular Hemoglobin 30.5 pg (27.0-31.0); Mean Corpuscular Volume 95.5 fL (78.0-98.0); Mean Platelet Volume 6.4 fL (7.4-10.4); Platelet Count 266 thou/uL (130-400); RBC Distribution Width 12.9 % (11.5-14.5); Red Blood Cell (RBC) Count 2.92 mill/uL (4.70-6.10)
[2021-01-19 05:13] LABS: Anion Gap 8 mmol/L (10-20); BUN (Urea Nitrogen) 22 mg/dL (8.4-25.7); Calc. Creatinine Clearance 118 mL/min (70-130); Calcium 8.9 mg/dL (7.8-10.44); Carbon Dioxide 32 mmol/L (23-31); Chloride 94 mmol/L (98-107); Glucose 131 mg/dL (83-110); Potassium 4.2 mmol/L (3.5-5.1); Sodium 130 mmol/L (136-145)
[2021-01-19] MEDS: Levothyroxine Sodium 125 MCG TAB PO SCH (06:00)
[2021-01-19] MEDS: Sacubitril 49 MG/Valsartan 51 MG TABLET PO SCH ×2 (09:09→21:32)
[2021-01-19] MEDS: Ferrous Sulfate 325 MG TAB PO SCH (09:10)
[2021-01-19] MEDS: Clopidogrel Bisulfate 75 MG TAB PO SCH (09:10)
[2021-01-19] MEDS: hydrALAZINE 25 MG TAB PO SCH ×3 (09:10→20:05)
[2021-01-19] MEDS: Docusate 100 MG CAP PO SCH ×2 (09:10→20:06)
[2021-01-19] MEDS: Multivit, Therapeutic 1 TAB PO SCH (09:10)
[2021-01-19] MEDS: Magnesium Oxide 400 MG TAB PO SCH (09:10)
[2021-01-19] MEDS: Carvedilol 6.25 MG TAB PO SCH ×2 (09:11→20:05)
[2021-01-19] MEDS: Atorvastatin Calcium 20 MG TAB PO SCH (20:05)
[2021-01-19] MEDS: Tamsulosin HCl 0.4 MG CAP PO SCH (20:05)
[2021-01-19] MEDS: Aspirin 81 mg Enteric Coated Tablet PO SCH (20:05)
[2021-01-19] MEDS: Gabapentin 300 MG CAP PO SCH (20:06)
[2021-01-20] MEDS: methylPREDNISolone 4 mg Tablet PO SCH ×3 (04:12→21:03)
[2021-01-20] MEDS: Levothyroxine Sodium 125 MCG TAB PO SCH (06:28)
[2021-01-20] MEDS: Sacubitril 49 MG/Valsartan 51 MG TABLET PO SCH ×2 (08:15→21:07)
[2021-01-20] MEDS: Clopidogrel Bisulfate 75 MG TAB PO SCH (08:15)
[2021-01-20] MEDS: Carvedilol 6.25 MG TAB PO SCH ×2 (08:16→21:02)
[2021-01-20] MEDS: hydrALAZINE 25 MG TAB PO SCH ×3 (08:16→21:04)
[2021-01-20] MEDS: Multivit, Therapeutic 1 TAB PO SCH (08:17)
[2021-01-20] MEDS: Magnesium Oxide 400 MG TAB PO SCH (08:17)
[2021-01-20] MEDS: Ferrous Sulfate 325 MG TAB PO SCH (08:17)
[2021-01-20] MEDS: Docusate 100 MG CAP PO SCH ×2 (08:17→21:02)
[2021-01-20] MEDS: Furosemide 20 MG TAB PO SCH (18:21)
[2021-01-20 19:37] VITALS: BP 145/82; TEMP 97.7
[2021-01-20] MEDS: Aspirin 81 mg Enteric Coated Tablet PO SCH (21:02)
[2021-01-20] MEDS: Atorvastatin Calcium 20 MG TAB PO SCH (21:02)
[2021-01-20] MEDS: Tamsulosin HCl 0.4 MG CAP PO SCH (21:03)
[2021-01-20] MEDS: Gabapentin 300 MG CAP PO SCH (21:03)
[2021-01-24] MEDS ORDERED: methylPREDNISolone 4 mg Tablet PO SCH (08:00)
[2021-01-29] MEDS ORDERED: methylPREDNISolone 4 mg Tablet PO SCH (09:00)
== END 2021-01-20 21:30 | disposition home or self-care (01) | DRG 641 ==
LOC: ERS 20:06 → ERHOLD 01-16 00:22 → 2NO 01-16 14:44 → T4-B 01-19 16:48
PROVIDERS: ADMIT Internal Medicine; ATTEND Internal Medicine
PROC: 0T9B70Z Drainage of Bladder with Drainage Device, Via Natural or Artificial Opening (ICD-10-PCS; principal; 2021-01-16)
PROC: 3E0333Z Introduction of Anti-inflammatory into Peripheral Vein, Percutaneous Approach (ICD-10-PCS; 2021-01-16)
DX: E87.1 Hypo-osmolality and hyponatremia (principal); S72.431A Displaced fracture of medial condyle of right femur, initial encounter for closed fracture; S72.432A Displaced fracture of medial condyle of left femur, initial encounter for closed fracture; I13.0 Hypertensive heart and chronic kidney disease with heart failure and stage 1 through stage 4 chronic kidney disease, or unspecified chronic kidney disease; I50.32 Chronic diastolic (congestive) heart failure; Z20.822 Contact with and (suspected) exposure to COVID-19; E78.5 Hyperlipidemia, unspecified; E11.22 Type 2 diabetes mellitus with diabetic chronic kidney disease; E03.9 Hypothyroidism, unspecified; N18.30 Chronic kidney disease, stage 3 unspecified; D63.1 Anemia in chronic kidney disease; S82.491A Other fracture of shaft of right fibula, initial encounter for closed fracture; I48.91 Unspecified atrial fibrillation; W18.30XA Fall on same level, unspecified, initial encounter; I45.10 Unspecified right bundle-branch block; I25.10 Atherosclerotic heart disease of native coronary artery without angina pectoris; S82.61XA Displaced fracture of lateral malleolus of right fibula, initial encounter for closed fracture; N40.1 Benign prostatic hyperplasia with lower urinary tract symptoms; R33.8 Other retention of urine; Z95.1 Presence of aortocoronary bypass graft; Z90.49 Acquired absence of other specified parts of digestive tract; Z87.891 Personal history of nicotine dependence; Z98.61 Coronary angioplasty status; Z88.0 Allergy status to penicillin; Z88.1 Allergy status to other antibiotic agents; Z91.040 Latex allergy status; Z79.84 Long term (current) use of oral hypoglycemic drugs; Z79.82 Long term (current) use of aspirin; Z79.890 Hormone replacement therapy; Z79.899 Other long term (current) drug therapy; Z98.890 Other specified postprocedural states
CPT/HCPCS: 36415; 36416; 51702; 71275; 76000; 80048; 80061; 80202; 81003; 82533; 82728; 83036; 83540; 83550; 83605; 83735; 83880; 83930; 83935; 84295; 84300; 84443; 84484; 85025; 85027; 85610; 85730; 87040; 87086; 93005; 93010; 93306; 96365; 96367; 96375; J0171; J0692; J1100; J1956; J2405; J2704; J3010; J3370; J3490; J7050; J7509; Q9967; S0020; U0002; U0003; U0005

== ENCOUNTER 2021-02-02 09:46 | Outpatient (CLI) | payer MEDICARE, BC | END 2021-02-02 09:47 | disposition home or self-care (01) | LOC: SJX 09:46 | PROVIDERS: ATTEND Physical Medicine & Rehabilitation | DX: S72.432A Displaced fracture of medial condyle of left femur, initial encounter for closed fracture (principal); S72.431A Displaced fracture of medial condyle of right femur, initial encounter for closed fracture; S83.105A Unspecified dislocation of left knee, initial encounter; S82.112A Displaced fracture of left tibial spine, initial encounter for closed fracture ==

== ENCOUNTER 2021-02-26 06:03 | Inpatient (IN) | payer MEDICARE, BC ==
[2021-02-26 07:14] LABS: #Eosinphils 0.1 thou/uL (0.0-0.7); #Lymphocytes 0.9 thou/uL (1.20-3.40); #Monocytes 0.4 thou/uL (0.11-0.59); #Neutrophils 4.7 thou/uL (1.40-6.50); %Basophils 0.5 % (0.0-1.0); %Eosinophils 0.9 % (0.0-10.0); %Lymphocytes 14.8 % (21.0-51.0); %Monocytes 7.2 % (0.0-10.0); %Neutrophils 76.7 % (42.0-75.0); Mean Corpuscular HGB CONC 33.5 g/dL (32.0-36.0); Mean Corpuscular Hemoglobin 32.1 pg (27.0-31.0); Mean Corpuscular Volume 95.9 fL (78.0-98.0); Mean Platelet Volume 6.1 fL (7.4-10.4); Platelet Count 307 thou/uL (130-400); RBC Distribution Width 13.2 % (11.5-14.5); Red Blood Cell (RBC) Count 3.73 mill/uL (4.70-6.10); White Blood Cell (WBC) Count 6.1 thou/uL (4.8-10.8)
[2021-02-26 07:34] LABS: ALT (SGPT) 7 U/L (8-55); AST (SGOT) 12 U/L (5-34); Albumin 3.6 g/dL (3.4-4.8); Alkaline Phosphatase 76 U/L (40-110); Anion Gap 14 mmol/L (10-20); BUN (Urea Nitrogen) 9 mg/dL (8.4-25.7); Bilirubin, Total 0.6 mg/dL (0.2-1.2); Calc. Creatinine Clearance 0 mL/min (70-130); Calcium 9.2 mg/dL (7.8-10.44); Carbon Dioxide 28 mmol/L (23-31); Chloride 88 mmol/L (98-107); Globulin 2.6 g/dL (2.4-3.5); Glucose 121 mg/dL (83-110); Lipase 10 U/L (8-78); Potassium 4.1 mmol/L (3.5-5.1); Protein, Total 6.2 g/dL (5.8-8.1); Sodium 126 mmol/L (136-145)
[2021-02-26] MEDS ORDERED: Nitroglycerin 2% Ointment 1 INCH/1 GM Packet ONE (08:26)
[2021-02-26] MEDS ORDERED: Furosemide 40 MG/4 ML VIAL ONE (08:26)
[2021-02-26] MEDS ORDERED: Ondansetron PF 4 MG/2 ML Vial IVP PRN (08:52)
[2021-02-26] MEDS ORDERED: Acetaminophen 325 MG TAB PO PRN (08:52)
[2021-02-26] MEDS ORDERED: Dextrose 5% in Water 1,000 ML IV PRN (08:52)
[2021-02-26] MEDS ORDERED: HumaLOG 300 UNITS/3 ML VIAL SC PRN ×2 (08:52)
[2021-02-26] MEDS ORDERED: Dextrose 50% Abboject 50 ML SYRINGE SLOW IVP PRN (08:52)
[2021-02-26] MEDS ORDERED: Nitroglycerin 0.4 MG TAB 1 EACH ONE (08:53)
[2021-02-26] MEDS ORDERED: Carvedilol 6.25 MG TAB PO SCH (08:54)
[2021-02-26] MEDS ORDERED: cloNIDine 0.1 MG TAB PO PRN (08:56)
[2021-02-26] MEDS ORDERED: Clopidogrel Bisulfate 75 MG TAB ONE (10:14)
[2021-02-26] MEDS ORDERED: hydrALAZINE 25 MG TAB ONE (10:14)
[2021-02-26] MEDS: hydrALAZINE 25 MG TAB PO SCH ×3 (10:26→21:46)
[2021-02-26 10:27] LABS: Troponin I 0.016 ng/mL (< 0.028)
[2021-02-26] MEDS: Clopidogrel Bisulfate 75 MG TAB PO SCH (10:27)
[2021-02-26] MEDS: Levothyroxine Sodium 125 MCG TAB PO SCH (12:23)
[2021-02-26] MEDS: Sacubitril 49 MG/Valsartan 51 MG TABLET PO SCH ×2 (12:24→21:46)
[2021-02-26 13:54] LABS: SARS-CoV-2 NAA Rapid Test Not Detected (NotDetected)
[2021-02-26] MEDS ORDERED: Nitroglycerin 2% Ointment 1 INCH/1 GM Packet TOP SCH (14:00)
[2021-02-26 14:11] LABS: Troponin I 0.083 ng/mL (< 0.028)
[2021-02-26] MEDS ORDERED: Nitroglycerin 0.4 MG TAB (25 Tab Bottle) SL PRN (16:29)
[2021-02-26] MEDS: Aspirin Chewable 81 MG TAB PO SCH (21:45)
[2021-02-26] MEDS: Atorvastatin Calcium 20 MG TAB PO SCH (21:46)
[2021-02-26] MEDS: Tamsulosin HCl 0.4 MG CAP PO SCH (21:46)
[2021-02-26] MEDS: Carvedilol 3.125 MG TAB PO SCH (21:46)
[2021-02-26] MEDS: Gabapentin 300 MG CAP PO SCH (21:46)
[2021-02-27 05:03] LABS: #Eosinphils 0.1 thou/uL (0.0-0.7); #Lymphocytes 1.3 thou/uL (1.20-3.40); #Monocytes 0.8 thou/uL (0.11-0.59); %Basophils 0.1 % (0.0-1.0); %Eosinophils 1.1 % (0.0-10.0); %Lymphocytes 17.9 % (21.0-51.0); %Monocytes 11.5 % (0.0-10.0); %Neutrophils 69.4 % (42.0-75.0); Hemoglobin 11.6 g/dL (14.0-18.0); Mean Corpuscular HGB CONC 34.5 g/dL (32.0-36.0); Mean Corpuscular Hemoglobin 32.6 pg (27.0-31.0); Mean Corpuscular Volume 94.3 fL (78.0-98.0); Mean Platelet Volume 6.4 fL (7.4-10.4); Platelet Count 317 thou/uL (130-400); RBC Distribution Width 13.2 % (11.5-14.5); Red Blood Cell (RBC) Count 3.55 mill/uL (4.70-6.10); White Blood Cell (WBC) Count 7.2 thou/uL (4.8-10.8)
[2021-02-27 05:22] LABS: Anion Gap 13 mmol/L (10-20); BUN (Urea Nitrogen) 10 mg/dL (8.4-25.7); Calc. Creatinine Clearance 102 mL/min (70-130); Carbon Dioxide 31 mmol/L (23-31); Chloride 87 mmol/L (98-107); Glucose 105 mg/dL (83-110); Potassium 3.7 mmol/L (3.5-5.1); Sodium 127 mmol/L (136-145)
[2021-02-27] MEDS: Levothyroxine Sodium 125 MCG TAB PO SCH (05:49)
[2021-02-27] MEDS ORDERED: Furosemide 20 MG TAB PO SCH (09:00)
[2021-02-27] MEDS: Clopidogrel Bisulfate 75 MG TAB PO SCH (09:26)
[2021-02-27] MEDS: hydrALAZINE 25 MG TAB PO SCH ×3 (09:26→22:02)
[2021-02-27] MEDS: Sacubitril 49 MG/Valsartan 51 MG TABLET PO SCH ×2 (09:26→21:59)
[2021-02-27] MEDS: Carvedilol 3.125 MG TAB PO SCH ×2 (09:27→22:30)
[2021-02-27 13:53] LABS: Magnesium 1.3 mg/dL (1.6-2.6)
[2021-02-27 13:56] LABS: Troponin I 0.162 ng/mL (< 0.028)
[2021-02-27] MEDS ORDERED: Magnesium Sulfate 4 GM in Sodium Chloride 0.9% 250 ML 250 ML IVPB SCH (14:00)
[2021-02-27 14:15] VITALS: BMI 32.5
[2021-02-27 15:00] LABS: Anion Gap 15 mmol/L (10-20); BUN (Urea Nitrogen) 9 mg/dL (8.4-25.7); Calc. Creatinine Clearance 108 mL/min (70-130); Calcium 9.1 mg/dL (7.8-10.44); Carbon Dioxide 29 mmol/L (23-31); Chloride 88 mmol/L (98-107); Glucose 107 mg/dL (83-110); Potassium 3.6 mmol/L (3.5-5.1); Sodium 128 mmol/L (136-145)
[2021-02-27] MEDS ORDERED: Potassium Chloride 20 MEQ TAB PO SCH (18:15)
[2021-02-27] MEDS ORDERED: Empagliflozin 10 MG TAB PO SCH (19:15)
[2021-02-27] MEDS: Gabapentin 300 MG CAP PO SCH (21:58)
[2021-02-27] MEDS: Aspirin Chewable 81 MG TAB PO SCH (21:58)
[2021-02-27] MEDS: Atorvastatin Calcium 20 MG TAB PO SCH (21:58)
[2021-02-27] MEDS: Tamsulosin HCl 0.4 MG CAP PO SCH (21:59)
[2021-02-28 05:25] LABS: #Eosinphils 0.1 thou/uL (0.0-0.7); #Lymphocytes 1.2 thou/uL (1.20-3.40); #Monocytes 0.8 thou/uL (0.11-0.59); #Neutrophils 4.3 thou/uL (1.40-6.50); %Basophils 0.2 % (0.0-1.0); %Eosinophils 1.3 % (0.0-10.0); %Lymphocytes 19.4 % (21.0-51.0); %Neutrophils 67.1 % (42.0-75.0); Hemoglobin 10.8 g/dL (14.0-18.0); Mean Corpuscular HGB CONC 32.5 g/dL (32.0-36.0); Mean Corpuscular Hemoglobin 30.9 pg (27.0-31.0); Mean Corpuscular Volume 95.2 fL (78.0-98.0); Mean Platelet Volume 6.4 fL (7.4-10.4); Platelet Count 275 thou/uL (130-400); RBC Distribution Width 13.2 % (11.5-14.5); White Blood Cell (WBC) Count 6.3 thou/uL (4.8-10.8)
[2021-02-28 05:46] LABS: Phosphorus 3.4 mg/dL (2.3-4.7)
[2021-02-28 05:48] LABS: Anion Gap 14 mmol/L (10-20); BUN (Urea Nitrogen) 9 mg/dL (8.4-25.7); Calc. Creatinine Clearance 113 mL/min (70-130); Calcium 8.7 mg/dL (7.8-10.44); Carbon Dioxide 28 mmol/L (23-31); Chloride 90 mmol/L (98-107); Glucose 99 mg/dL (83-110); Sodium 128 mmol/L (136-145)
[2021-02-28] MEDS: Levothyroxine Sodium 125 MCG TAB PO SCH (06:07)
[2021-02-28] MEDS ORDERED: Empagliflozin 10 MG TAB PO SCH (09:00)
[2021-02-28] MEDS: Carvedilol 3.125 MG TAB PO SCH ×2 (10:05→21:45)
[2021-02-28] MEDS: hydrALAZINE 25 MG TAB PO SCH ×3 (10:05→21:45)
[2021-02-28] MEDS: Sacubitril 49 MG/Valsartan 51 MG TABLET PO SCH ×2 (10:05→21:24)
[2021-02-28] MEDS: Clopidogrel Bisulfate 75 MG TAB PO SCH (10:05)
[2021-02-28] MEDS: Empagliflozin 10 MG TAB PO SCH (10:05)
[2021-02-28] MEDS ORDERED: Acetaminophen 325 MG TAB PO PRN (14:39)
[2021-02-28] MEDS: Aspirin Chewable 81 MG TAB PO SCH (21:24)
[2021-02-28] MEDS: Atorvastatin Calcium 20 MG TAB PO SCH (21:24)
[2021-02-28] MEDS: Gabapentin 300 MG CAP PO SCH (21:24)
[2021-02-28] MEDS: Tamsulosin HCl 0.4 MG CAP PO SCH (21:25)
[2021-02-28] MEDS: Senokot 8.6 MG TAB PO SCH (21:25)
[2021-03-01 05:03] LABS: Anion Gap 10 mmol/L (10-20); BUN (Urea Nitrogen) 10 mg/dL (8.4-25.7); Calc. Creatinine Clearance 113 mL/min (70-130); Calcium 8.8 mg/dL (7.8-10.44); Carbon Dioxide 31 mmol/L (23-31); Chloride 93 mmol/L (98-107); Glucose 104 mg/dL (83-110); Potassium 3.7 mmol/L (3.5-5.1); Sodium 130 mmol/L (136-145)
[2021-03-01] MEDS: Levothyroxine Sodium 125 MCG TAB PO SCH (05:40)
[2021-03-01] MEDS ORDERED: Potassium Chloride 20 MEQ TAB PO SCH (09:00)
[2021-03-01] MEDS: Sacubitril 49 MG/Valsartan 51 MG TABLET PO SCH (09:22)
[2021-03-01] MEDS: Empagliflozin 10 MG TAB PO SCH (09:22)
[2021-03-01] MEDS: Carvedilol 3.125 MG TAB PO SCH (09:22)
[2021-03-01] MEDS: Senokot 8.6 MG TAB PO SCH (09:22)
[2021-03-01] MEDS: Clopidogrel Bisulfate 75 MG TAB PO SCH (09:22)
[2021-03-01] MEDS: hydrALAZINE 25 MG TAB PO SCH (09:27)
[2021-03-01 16:32] VITALS: BP 101/58; TEMP 98
[2021-03-01] MEDS ORDERED: Gabapentin 300 MG CAP PO SCH (21:00)
== END 2021-03-01 17:34 | disposition home health service (06) | DRG 291 ==
LOC: ERS 06:03 → ERHOLD 08:35 → 2NO 14:45 → OBSVTOIN 02-27 16:39
PROVIDERS: ADMIT Family Medicine; ATTEND Family Medicine
DX: I11.0 Hypertensive heart disease with heart failure (principal); I50.33 Acute on chronic diastolic (congestive) heart failure; E87.1 Hypo-osmolality and hyponatremia; Z20.822 Contact with and (suspected) exposure to COVID-19; I25.110 Atherosclerotic heart disease of native coronary artery with unstable angina pectoris; E78.5 Hyperlipidemia, unspecified; N40.1 Benign prostatic hyperplasia with lower urinary tract symptoms; R33.8 Other retention of urine; G47.33 Obstructive sleep apnea (adult) (pediatric); E78.00 Pure hypercholesterolemia, unspecified; I48.0 Paroxysmal atrial fibrillation; M75.81 Other shoulder lesions, right shoulder; E03.9 Hypothyroidism, unspecified; S72.431D Displaced fracture of medial condyle of right femur, subsequent encounter for closed fracture with routine healing; Z88.0 Allergy status to penicillin; Z88.1 Allergy status to other antibiotic agents; Z91.040 Latex allergy status; Z95.1 Presence of aortocoronary bypass graft; Z79.899 Other long term (current) drug therapy; Z79.82 Long term (current) use of aspirin; Z79.02 Long term (current) use of antithrombotics/antiplatelets; Z79.890 Hormone replacement therapy; Z79.84 Long term (current) use of oral hypoglycemic drugs; Z98.890 Other specified postprocedural states; Z98.42 Cataract extraction status, left eye; Z98.41 Cataract extraction status, right eye; Z82.49 Family history of ischemic heart disease and other diseases of the circulatory system; Z99.89 Dependence on other enabling machines and devices; S72.432D Displaced fracture of medial condyle of left femur, subsequent encounter for closed fracture with routine healing
CPT/HCPCS: 36415; 36416; 51702; 51798; 71045; 80048; 80053; 83690; 83735; 83880; 84100; 84443; 84484; 85025; 87086; 93005; 93306; 94760; 96374; G0378; J1940; J3475; J7050; U0002

== ENCOUNTER 2021-03-01 23:46 | Emergency (ER) | payer MEDICARE, BC ==
[2021-03-02 03:11] LABS: Bacteria/HPF None Seen HPF (None Seen); RBC/HPF Greater than 50 HPF (0-3); Squamous Epithelial None Seen HPF (0-3); WBC/HPF Greater than 50 HPF (0-3)
[2021-03-02 03:14] LABS: Hemoglobin 12.5 g/dL (14.0-18.0); Mean Corpuscular HGB CONC 32.5 g/dL (32.0-36.0); Mean Corpuscular Hemoglobin 31.6 pg (27.0-31.0); Mean Platelet Volume 6.8 fL (7.4-10.4); Platelet Count 223 thou/uL (130-400); RBC Distribution Width 13.1 % (11.5-14.5); Red Blood Cell (RBC) Count 3.96 mill/uL (4.70-6.10); White Blood Cell (WBC) Count 10.9 thou/uL (4.8-10.8)
[2021-03-02 03:31] LABS: Bilirubin Small (Negative); Blood, Urine Large (Negative); Clarity Turbid (Clear); Glucose, Urine (Dipstick) 500 mg/dL (Negative); Ketone, Urine 15 mg/dL (Negative); Nitrite Negative (Negative); Protein, Urine (Dipstick) 30 mg/dL (Neg-Trace); Specific Gravity, Urine 1.015 (1.005-1.030); Urobilinogen 0.2 mg/dL (Less than 2)
[2021-03-02 03:32] LABS: Leukocyte Large (Negative)
[2021-03-02 03:32] LABS: Albumin 3.9 g/dL (3.4-4.8)
[2021-03-02 03:33] LABS: Chloride 93 mmol/L (98-107); Potassium 4.4 mmol/L (3.5-5.1); Sodium 131 mmol/L (136-145)
[2021-03-02 03:34] LABS: Calcium 9.7 mg/dL (7.8-10.44); Glucose 108 mg/dL (83-110)
[2021-03-02 03:35] LABS: Globulin 2.7 g/dL (2.4-3.5); Protein, Total 6.6 g/dL (5.8-8.1)
[2021-03-02 03:36] LABS: Anion Gap 14 mmol/L (10-20); Bilirubin, Total 0.6 mg/dL (0.2-1.2); Carbon Dioxide 28 mmol/L (23-31)
[2021-03-02 03:37] LABS: Alkaline Phosphatase 81 U/L (40-110)
[2021-03-02 03:38] LABS: Calc. Creatinine Clearance 0 mL/min (70-130)
[2021-03-02 03:39] LABS: BUN (Urea Nitrogen) 12 mg/dL (8.4-25.7)
[2021-03-02 03:40] LABS: ALT (SGPT) 11 U/L (8-55); AST (SGOT) 17 U/L (5-34)
[2021-03-02] MEDS ORDERED: Carvedilol 3.125 MG TAB PO SCH (03:45)
[2021-03-02 04:17] LABS: Lymphocytes 11 % (21-51); MDiff Complete? YES; Monocytes 8 % (0-10); Neutrophil 81 % (42-75); Platelet Morphology Comment Appears Adequate; RBC Morphology Normal
== END 2021-03-02 04:50 | disposition home or self-care (01) ==
LOC: ERS 23:46
DX: R31.9 Hematuria, unspecified (principal); E78.5 Hyperlipidemia, unspecified; I48.92 Unspecified atrial flutter; E11.9 Type 2 diabetes mellitus without complications; E03.9 Hypothyroidism, unspecified; I10 Essential (primary) hypertension; Z87.891 Personal history of nicotine dependence; Z79.82 Long term (current) use of aspirin; Z79.84 Long term (current) use of oral hypoglycemic drugs; Z79.899 Other long term (current) drug therapy
CPT/HCPCS: 36415; 51702; 80053; 81003; 81015; 85025; 87086

== ENCOUNTER 2021-04-13 14:48 | Outpatient (CLI) | payer MEDICARE, BC | END 2021-04-13 14:49 | disposition home or self-care (01) | LOC: BICRAD 14:48 | PROVIDERS: ATTEND Podiatrist | DX: M79.672 Pain in left foot (principal) ==

== ENCOUNTER 2021-09-28 10:32 | Outpatient (CLI) | payer MEDICARE, BC | END 2021-09-28 10:33 | disposition home or self-care (01) | LOC: TBSIIMAG 10:32 | PROVIDERS: ATTEND Neurological Surgery | DX: M47.12 Other spondylosis with myelopathy, cervical region (principal) | CPT/HCPCS: 72141 ==

== ENCOUNTER 2021-10-21 21:55 | Emergency (ER) | payer MEDICARE, BC ==
[2021-10-21 23:12] LABS: #Eosinphils 0.1 thou/uL (0.0-0.7); #Lymphocytes 0.9 thou/uL (1.20-3.40); #Monocytes 0.5 thou/uL (0.11-0.59); #Neutrophils 4.9 thou/uL (1.40-6.50); %Basophils 0.3 % (0.0-1.0); %Lymphocytes 14.2 % (21.0-51.0); %Monocytes 8.4 % (0.0-10.0); %Neutrophils 76.3 % (42.0-75.0); Hemoglobin 12.7 g/dL (14.0-18.0); Mean Corpuscular HGB CONC 32.7 g/dL (32.0-36.0); Mean Platelet Volume 6.6 fL (7.4-10.4); Platelet Count 206 thou/uL (130-400); RBC Distribution Width 12.6 % (11.5-14.5); Red Blood Cell (RBC) Count 3.85 mill/uL (4.70-6.10); White Blood Cell (WBC) Count 6.4 thou/uL (4.8-10.8)
[2021-10-21 23:33] LABS: ALT (SGPT) 11 U/L (8-55); AST (SGOT) 16 U/L (5-34); Albumin 4.2 g/dL (3.4-4.8); Alkaline Phosphatase 76 U/L (40-110); Anion Gap 15 mmol/L (10-20); BUN (Urea Nitrogen) 16 mg/dL (8.4-25.7); Bilirubin, Total 0.7 mg/dL (0.2-1.2); Calc. Creatinine Clearance 0 mL/min (70-130); Calcium 9.8 mg/dL (7.8-10.44); Carbon Dioxide 29 mmol/L (23-31); Chloride 96 mmol/L (98-107); Globulin 3.2 g/dL (2.4-3.5); Glucose 121 mg/dL (83-110); Potassium 5.2 mmol/L (3.5-5.1); Protein, Total 7.4 g/dL (5.8-8.1); Sodium 135 mmol/L (136-145)
== END 2021-10-22 00:58 | disposition home or self-care (01) ==
LOC: ERS 21:55
DX: R07.9 Chest pain, unspecified (principal); E78.5 Hyperlipidemia, unspecified; I48.92 Unspecified atrial flutter; E11.9 Type 2 diabetes mellitus without complications; E03.9 Hypothyroidism, unspecified; I10 Essential (primary) hypertension; Z87.891 Personal history of nicotine dependence
CPT/HCPCS: 36415; 71045; 80053; 84484; 85025; 93005

== ENCOUNTER 2021-11-16 13:32 | Outpatient (CLI) | payer MEDICARE, BC | END 2021-11-16 13:33 | disposition home or self-care (01) | LOC: LABBT 13:32 | PROVIDERS: ATTEND Family Medicine | DX: Z20.822 Contact with and (suspected) exposure to COVID-19 (principal) | CPT/HCPCS: 87811 ==

== ENCOUNTER 2021-11-20 10:30 | Outpatient (CLI) | payer MEDICARE, BC | END 2021-11-20 10:31 | disposition home or self-care (01) | LOC: RAD 10:30 | PROVIDERS: ATTEND Neurological Surgery | DX: I69.891 Dysphagia following other cerebrovascular disease (principal) | CPT/HCPCS: 74230 ==

== ENCOUNTER 2022-01-09 14:02 | Emergency (ER) | payer MEDICARE, BC ==
[2022-01-09] MEDS ORDERED: Lidocaine 1% (PF) 30 ML VIAL ONE (14:41)
[2022-01-09] MEDS ORDERED: Boostrix 0.5 ML (Tdap) VIAL (>/=7 yrs of age) ONE (15:00)
== END 2022-01-09 15:47 | disposition home or self-care (01) ==
LOC: ERS 14:02
DX: S61.211A Laceration without foreign body of left index finger without damage to nail, initial encounter (principal); E78.5 Hyperlipidemia, unspecified; E11.9 Type 2 diabetes mellitus without complications; E03.9 Hypothyroidism, unspecified; Z95.0 Presence of cardiac pacemaker; Z87.891 Personal history of nicotine dependence; Z23 Encounter for immunization; W26.0XXA Contact with knife, initial encounter
CPT/HCPCS: 12001; 90471; 90715; J2001

== ENCOUNTER 2022-03-08 14:36 | Outpatient (CLI) | payer MEDICARE, BC | END 2022-03-08 14:37 | disposition home or self-care (01) | LOC: BICMAMMO 14:36 | PROVIDERS: ATTEND Specialist | DX: N62 Hypertrophy of breast (principal) | CPT/HCPCS: 77066; G0279 ==

== ENCOUNTER 2023-06-06 07:45 | Outpatient (CLI) | payer MEDICARE, BC | END 2023-06-06 07:46 | disposition home or self-care (01) | LOC: NM 07:45 | PROVIDERS: ATTEND Urology | DX: C61 Malignant neoplasm of prostate (principal) | CPT/HCPCS: 78306; A9503 ==